=== PATIENT | female | born 1955 | race Caucasian/White ===

== ENCOUNTER 2017-10-02 20:21 | Inpatient (IN) | payer MEDICARE, BC ==
[2017-10-02] MEDS ORDERED: Naloxone 0.4 MG/ML SDV ONE (20:25)
--- NOTE | 2017-10-02 20:46 | EDM.PDOC ---
ED HPI GENERAL MEDICAL PROBLEM - General Chief Complaint: General Stated Complaint: decreased LOC Time Seen by Provider: 10/02/17 20:26 Source of Information: Reports: Other (friend, ) History Limitations: Reports: Altered Mental Status - History of Present Illness INITIAL COMMENTS - FREE TEXT/NARRATIVE: Patient brought by EMS from local home after patient fell over several times/ was acting unusual and exhibited decreased LOC. Patient was visiting friend's home at the time, but recalled that she was acting strangely even before then when they were at [facility]. denies the patient having any problems with drug/ETOH addiction. Staff member present has friend that is neighbor of patient and it has been noted that patient frequently appears to be falling/has poor balance around home and steps. Friend says that first thing patient asked for was a glass of wine when she came through the front door. Friend noticed patient slurring words, had poor balance, and ultimately fell over onto floor. She got up, denied having any injuries or problems, and refused to have friend call patient's when offered. Refused EMS too. Asked for another glass of wine as she spilled the first one. Friend noticed that patient was rambling during visit, and jumped frequently from one subject to another. She then tipped sideways while sitting in a chair. EMS on scene started IV. Blood sugar also checked, D50 not required. By time patient arrived in ER, she was sleeping, aroused by voice. Unable to answer questions however, she would move her lips as though starting to form words, then drift off asleep again. Snoring at times. Would follow some basic commands, such as when asked to squeeze hands. 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: IV/IO - Related Data Allergies Allergy/AdvReac Type Severity Reaction Status Date / Time codeine Allergy Unknown Hyperactivi Verified 10/02/17 20:39 ty Iodinated Contrast- Oral and Allergy Unknown Hives Verified 10/02/17 20:39 IV Dye mirtazapine [From Remeron] Allergy Unknown Airway Verified 10/02/17 20:39 Tightness Penicillins Allergy Unknown Edema Verified 10/02/17 20:39 Home Meds: Home Meds Amitriptyline [Elavil] 75 mg PO DAILY 01/24/15 [History] Diazepam [Valium] 1 tab PO TID PRN 01/24/15 [History] FLUoxetine [PROzac] 40 mg PO DAILY 01/24/15 [History] Gabapentin [Neurontin] 800 mg PO QID 01/24/15 [History] Omeprazole 20 mg PO BEDTIME 01/24/15 [History] atorvaSTATin Calcium [Atorvastatin Calcium] 20 mg PO BEDTIME 01/24/15 [History] buPROPion [Wellbutrin XL] 1 tab PO DAILY 01/24/15 [History] Ibuprofen 800 mg PO Q8HR PRN 08/13/15 [History] diphenhydrAMINE [Benadryl] 50 mg PO Q4H PRN #100 cap 06/10/16 [Rx] Acetaminophen/Diphenhydramine [Tylenol Pm Ex-Strength Caplet] 1 each PO ASDIRECTED PRN 10/02/17 [History] DULoxetine [Cymbalta] 60 mg PO DAILY 10/02/17 [History] Eluxadoline [Viberzi] 100 mg PO BID 10/02/17 [History] Simethicone [Gas-X] 125 mg PO ASDIRECTED PRN 10/02/17 [History] Past Medical History HEENT History: Reports: Allergic Rhinitis, Impaired Vision Cardiovascular History: Reports: Arrhythmia, Blood Clots/VTE/DVT, High Cholesterol Other Cardiovascular History: EpiPen needed with iodide exposure, DVT with secondary PE postoperative with knee surgery as below, hyperlipidemia with recurrent LFTs elevation likely secondary to fatty liver, right bundle branch block Respiratory History: Reports: PE, Pulmonary Fibrosis, Other (See Below) Other Respiratory History: Postoperative PE as above, pulmonary fibrosis by chest x-ray with no current medical therapy Gastrointestinal History: Reports: Colon Polyp, Gastritis, Hemorrhoids, Hiatal Hernia, Pancreatitis, Other (See Below) Other Gastrointestinal History: 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 difficile colitis, hiatal hernia by EGD, pancreatitis on 01/29/05 Genitourinary History: Reports: Other (See Below) Other Genitourinary History: Distant history of hematuria with negative workup for bladder cancer [employer]ENT History: Reports: Other OB/BYN History: Tubal ligation Musculoskeletal History: Reports: Arthritis, Back Pain, Chronic, Neck Pain, Chronic, Osteoarthritis, Osteoporosis, Other (See Below) Other Musculoskeletal History: Scoliosis spinal surgeries as below Neurological History: Reports: Alzheimers Disease, Neuropathy, Peripheral Psychiatric History: Reports: Addiction, Anxiety, Dementia, Depression, Other ( See Below) Other Psychiatric History: Hx of narcotic use 2nd to back pain, eating disorder including anorexia nervosa and bulimia Endocrine/Metabolic History: Reports: Osteoporosis Hematologic History: Reports: Anemia, Blood Transfusion(s), Other (See Below) Other Hematologic History: Postoperative anemia secondary to his multiple surgeries as below with transfusions required Immunologic History: Reports: None Oncologic (Cancer) History: Reports: Colon, Other (See Below) Other Oncologic History: Sigmoid colon cancer as above Dermatologic History: Reports: None - Infectious Disease History Infectious Disease History: Reports: C-Difficile - Past Surgical History GI Surgical History: Reports: Colonoscopy, EGD, Polypectomy, Other (See Below) Female Surgical History: Reports: Tubal Ligation, Other (See Below) Neurological Surgical History: Reports: Discectomy, Laminectomy, Lumbar Spine, Spinal Fusion, Other (See Below) Musculoskeletal Surgical History: Reports: Knee Replacement - Past Imaging History Past Imaging History: Reports: CAT Scan, DEXA Scan, Mammogram, MRI, Ultrasound Social & Family History - Family History Cardiac: Reports: Hypertension, Other (See Below) Other Cardiac Family History: Mother with hypertension - Tobacco Use Smoking Status *Q: Never Smoker Used Tobacco, but Quit: No Second Hand Smoke Exposure: No - Caffeine Use Caffeine Use: Reports: Coffee, Tea - Alcohol Use Days Per Week of Alcohol Use: 7 Number of Drinks Per Day: 2 Total Drinks Per Week: 14 - Recreational Drug Use Recreational Drug Use: No Drug Use in Last 12 Months: No - Living Situation & Occupation Living situation: Reports: , with Family Occupation: Retired ED ROS GENERAL - Review of Systems Review Of Systems: Unable To Obtain (See HPI for family friend and 's account) ED EXAM, GENERAL - Physical Exam Exam: See Below Free Text/Narrative:: Patient slept during most of exam, rousing periodically. Clothing removed. Exam Limited By: Altered Mental Status General Appearance: Lethargic, Obtunded Eye Exam: Bilateral Eye: EOMI, PERRL (3-4mm, minimally reactive to light, equal) Ears: Normal External Exam, Normal Canal (excessive cerumen in canals) Nose: No: Nasal Tenderness, Nasal Deformity, Nasal Swelling, Nasal Drainage Throat/Mouth: Normal Lips, No Airway Compromise, Other (poor dental hygiene, no acute changes noted) Head: Atraumatic, Normocephalic. No: Facial Swelling, Facial Tenderness Neck: Normal Inspection, Supple, Non-Tender, Full Range of Motion Respiratory/Chest: No Respiratory Distress, Lungs Clear, Normal Breath Sounds, No Accessory Muscle Use, Chest Non-Tender Cardiovascular: Normal Peripheral Pulses, Regular Rate, Rhythm, No Edema, No Murmur Peripheral Pulses: 2+: Radial (L), Radial (R), Dorsalis Pedis (L), Dorsalis Pedis (R) GI/Abdominal: Normal Bowel Sounds, Soft, Non-Tender, No Distention (Female) Exam: Deferred Rectal (Female) Exam: Deferred, Other (Cooley placed in ER, no acute abnormalities noted during procedure. ) Back Exam: No: CVA Tenderness (L), CVA Tenderness (R), Muscle Spasm, Paraspinal Tenderness, Vertebral Tenderness Extremities: Non-Tender, No Pedal Edema, Normal Capillary Refill Neurological: Slow to Respond, Unresponsive, Other (Equal tone/strength bilaterally upper and lower limbs) Skin Exam: Warm, Dry, Intact, Normal Color, Other (No wounds/bruising/swelling noted on exam. ) EKG INTERPRETATION EKG Date: 10/02/17 Time: 21:14 Rhythm: NSR Rate (Beats/Min): 97 [place]: Normal P-Wave: Present QRS: Normal ST-T: Normal QT: Prolonged (382ms) Comparison: Change From Previous EKG (Prolonged QT is new) Course - Vital Signs Last Recorded V/S: Last Vital Signs Temp 36.6 C 10/02/17 20:23 Pulse 96 10/02/17 20:23 Resp 16 10/02/17 20:23 BP 101/65 10/02/17 20:23 Pulse Ox 97 10/02/17 20:23 - Orders/Labs/Meds Orders: Active Orders 24 hr Category Date Time Status EKG Documentation Completion [RC] ASDIRECTED Care 10/02/17 21:08 Ordered Cooley Catheter Insertion [Insert Urinary Catheter] [OM. Care 10/02/17 20:30 Ordered PC] Q24H Urinary Catheter Assessment [RC] ASDIRECTED Care 10/02/17 20:30 Ordered Head wo Cont [CT] Stat Exams 10/02/17 20:28 Ordered Labs: Laboratory Tests 10/02/17 10/02/17 10/02/17 Range/Units 20:34 20:34 20:34 WBC 4.4 (4.0-10.2) K/uL RBC 3.26 L (3.77-5.09) M/uL Hgb 10.1 L (11.7-15.5) g/dL Hct 31.2 L (34.0-46.0) % MCV 95.7 (84.0-98.0) fL MCH 31.0 (28.2-33.3) pg MCHC 32.4 (31.7-36.0) g/dL RDW 12.8 (11.2-14.1) % Plt Count 243 (150-350) K/uL Neut % (Auto) 41.9 L (45.0-80.0) % Lymph % (Auto) 47.4 (10.0-50.0) % [place] % (Auto) 7.3 (2.0-14.0) % Eos % (Auto) 3.2 (0.0-5.0) % Baso % (Auto) 0.2 (0.0-2.0) % Neut # (Auto) 1.84 (1.40-7.00) K/uL Lymph # (Auto) 2.08 (0.50-3.50) K/uL [place] # (Auto) 0.32 (0.00-1.00) K/uL Eos # (Auto) 0.14 (0.00-0.50) K/uL Baso # (Auto) 0.01 (0.00-0.20) K/uL Sodium 140 (136-145) mmol/L Potassium 3.6 (3.5-5.1) mmol/L Chloride 103 (98-107) mmol/L Carbon Dioxide 25.4 (21.0-32.0) mmol/L BUN 16 (7-18) mg/dL Creatinine 1.08 (0.51-1.17) mg/dL Est Cr Clr Drug Dosing 45.44 mL/min Estimated GFR (MDRD) 51 mL/min Glucose 80 (74-106) mg/dL Lactic Acid 1.8 (0.4-2.0) mmol/L Calcium 8.5 (8.5-10.1) mg/dL Total Bilirubin 0.1 L (0.2-1.0) mg/dL AST 22 (15-37) U/L ALT 26 (12-78) U/L Alkaline Phosphatase 105 (46-116) IU/L Total Protein 6.3 L (6.4-8.2) g/dL Albumin 3.4 (3.4-5.0) g/dL Amylase (25-115) U/L Specimen Type Urine Color Urine Appearance Urine pH (5.0-9.0) Ur Specific [place] (1.005-1.030) Urine Protein (NEGATIVE) mg/dL Urine Glucose (UA) (NEGATIVE) mg/dL Urine Ketones (NEGATIVE) mg/dL Urine Occult Blood (NEGATIVE) Urine Nitrite (NEGATIVE) Urine Bilirubin (NEGATIVE) Urine Urobilinogen (0.2-1.0) E.U./dL Ur Leukocyte Esterase (NEGATIVE) Urine RBC /HPF Urine WBC /HPF Ur Epithelial Cells /LPF Urine Bacteria (NONE TO FEW) /HPF Hyaline Casts (NEGATIVE) /LPF Urine Opiates Screen (NEGATIVE) Urine Methadone Screen (NEGATIVE) U Acetaminophen Screen (NEGATIVE) Ur Barbiturates Screen (NEGATIVE) Ur Tricyclics Screen (NEGATIVE) Ur Phencyclidine Scrn (NEGATIVE) Ur Amphetamine Screen (NEGATIVE) U Methamphetamines Scrn (NEGATIVE) U Benzodiazepines Scrn (NEGATIVE) U Cocaine Metab Screen (NEGATIVE) U Marijuana (THC) Screen (NEGATIVE) Ethyl Alcohol 0.008 (0.000-0.080) g/dL 10/02/17 10/02/17 10/02/17 Range/Units 20:46 20:48 20:48 WBC (4.0-10.2) K/uL RBC (3.77-5.09) M/uL Hgb (11.7-15.5) g/dL Hct (34.0-46.0) % MCV (84.0-98.0) fL MCH (28.2-33.3) pg MCHC (31.7-36.0) g/dL RDW (11.2-14.1) % Plt Count (150-350) K/uL Neut % (Auto) (45.0-80.0) % Lymph % (Auto) (10.0-50.0) % [place] % (Auto) (2.0-14.0) % Eos % (Auto) (0.0-5.0) % Baso % (Auto) (0.0-2.0) % Neut # (Auto) (1.40-7.00) K/uL Lymph # (Auto) (0.50-3.50) K/uL [place] # (Auto) (0.00-1.00) K/uL Eos # (Auto) (0.00-0.50) K/uL Baso # (Auto) (0.00-0.20) K/uL Sodium (136-145) mmol/L Potassium (3.5-5.1) mmol/L Chloride (98-107) mmol/L Carbon Dioxide (21.0-32.0) mmol/L BUN (7-18) mg/dL Creatinine (0.51-1.17) mg/dL Est Cr Clr Drug Dosing mL/min Estimated GFR (MDRD) mL/min Glucose (74-106) mg/dL Lactic Acid (0.4-2.0) mmol/L Calcium (8.5-10.1) mg/dL Total Bilirubin (0.2-1.0) mg/dL AST (15-37) U/L ALT (12-78) U/L Alkaline Phosphatase (46-116) IU/L Total Protein (6.4-8.2) g/dL Albumin (3.4-5.0) g/dL Amylase 71 (25-115) U/L Specimen Type Urincath Urine Color Yellow Urine Appearance Clear Urine pH 6.0 (5.0-9.0) Ur Specific [place] 1.010 (1.005-1.030) Urine Protein Negative (NEGATIVE) mg/dL Urine Glucose (UA) Negative (NEGATIVE) mg/dL Urine Ketones Negative (NEGATIVE) mg/dL Urine Occult Blood Trace-lysed H (NEGATIVE) Urine Nitrite Negative (NEGATIVE) Urine Bilirubin Negative (NEGATIVE) Urine Urobilinogen 0.2 (0.2-1.0) E.U./dL Ur Leukocyte Esterase Negative (NEGATIVE) Urine RBC 5-10 H /HPF Urine WBC Not seen /HPF Ur Epithelial Cells Rare /LPF Urine Bacteria Few (NONE TO FEW) /HPF Hyaline Casts Occasional H (NEGATIVE) /LPF Urine Opiates Screen Negative (NEGATIVE) Urine Methadone Screen Negative (NEGATIVE) U Acetaminophen Screen Negative (NEGATIVE) Ur Barbiturates Screen Negative (NEGATIVE) Ur Tricyclics Screen Positive H (NEGATIVE) Ur Phencyclidine Scrn Negative (NEGATIVE) Ur Amphetamine Screen Negative (NEGATIVE) U Methamphetamines Scrn Negative (NEGATIVE) U Benzodiazepines Scrn Positive H (NEGATIVE) U Cocaine Metab Screen Negative (NEGATIVE) U Marijuana (THC) Screen Negative (NEGATIVE) Ethyl Alcohol (0.000-0.080) g/dL Meds: Medications Discontinued Medications Generic Name Dose Route Start Last Admin Trade Name Dianna PRN Reason Stop Dose Admin Flumazenil 0.5 mg 10/02/17 21:04 10/02/17 21:07 Romazicon IVPUSH 10/02/17 21:05 0.5 mg ONETIME ONE Administration Naloxone HCl Confirm 10/02/17 20:25 10/02/17 20:26 Narcan Administered 10/02/17 20:26 0.4 mg Dose Administration 0.4 mg .ROUTE .STK-MED ONE - Radiology Interpretation CT Results Date: 10/02/17 CT Results Time: 21:00 (Head CT negative for acute changes. ) - Re-Assessments/Exams Free Text/Narrative Re-Assessment/Exam: Cooley placed. UA and blood sent to lab. CBC showed Hgb 10.1 Review of patient's chart shows that this is in her usual range of 10-11 over the past years. WBC and platelets normal. Chemistry, Amylase, Lipase normal. UA normal. ETOH showed low level present. Drug screen + for Benzo/Tricyclics which have been prescribed for patient. Vital signs stable, however BP remained on low side of normal overall. Narcan given shortly after arrival with no observed change. Once CT results were available and negative, and drug screen results read, Romazicon given. Shortly thereafter patient's eyes flew open and she looked around the room and wondered what was going on. When asked where she thought she was, she responded "[facility]". She thought it was October, and said the year correctly at 2018. Speech clear. When told we had treated her with a medication that reversed overdoses of Benzodiazepines, patient immediately said that she did not take any extra medications and had not misused any of her prescriptions. She denied trying to harm self or take too much on purpose. Plan at this time is to admit observation. Suspect Valium overdose. Patient is on multiple medications and may have multiple medications/interactions playing a factor in tonight's issues. Again, per a neighbor, patient is frequently seen around her house stumbling/falling, thus there is concern that this may be a chronic problem. Will have PT and OT evaluate patient on Wednesday to see if they have any concerns. Anticipate patient staying 36-48 hours while being observed for further changes in LOC while Valium level stabilizes in her system. Patient care will be taken over by [facility] [place] Wednesday and at that time they can review her medications and make adjustments as needed prior to anticipated discharge. Departure - Departure Time of Disposition: 21:44 Disposition: Refer to Observation Condition: Good Clinical Impression: Valium dependence Fall Qualifiers: Encounter type: initial encounter Qualified Code(s): W19.XXXA - Unspecified fall, initial encounter Altered mental state Qualifiers: Altered mental status type: stupor Qualified Code(s): R40.1 - Stupor Valium overdose Qualifiers: Encounter type: initial encounter Injury intent: accidental or unintentional Qualified Code(s): T42.4X1A - Poisoning by benzodiazepines, accidental ( unintentional), initial encounter - Discharge Information Referrals: Ronda Wyatt PA [ED Midlevel Provider] - Forms: ED Department Discharge - Problem List & Annotations (1) Valium overdose SNOMED Code(s): 215758132 Code(s): T42.4X1A - POISONING BY BENZODIAZEPINES, ACCIDENTAL, INIT Status: Acute Priority: High Current Visit: Yes Onset Date: 10/02/17 Annotation/ Comment:: Patient denies intentional overdosing. Immediate improvement in LOC after given IV Romazicon to reverse Benzodiazepine action. Qualifiers: Encounter type: initial encounter Injury intent: accidental or unintentional Qualified Code(s): T42.4X1A - Poisoning by benzodiazepines, accidental (unintentional), initial encounter (2) Altered mental state SNOMED Code(s): 451048896 Code(s): R41.82 - ALTERED MENTAL STATUS, UNSPECIFIED Status: Acute Priority: High Current Visit: Yes Onset Date: ~10/02/17 Annotation/Comment :: Suspect due to Valium OD. Currently improved. Negative head CT. Qualifiers: Altered mental status type: stupor Qualified Code(s): R40.1 - Stupor (3) Fall SNOMED Code(s): 5062326 Code(s): W19.XXXA - UNSPECIFIED FALL, INITIAL ENCOUNTER Status: Acute Priority: Low Current Visit: Yes Onset Date: 10/02/17 Annotation/Comment: : Does not appear to have any injuries acutely sustained from tonight's falls. Qualifiers: Encounter type: initial encounter Qualified Code(s): W19.XXXA - Unspecified fall, initial encounter (4) Valium dependence SNOMED Code(s): 161389762 Code(s): F13.20 - SEDATIVE, HYPNOTIC OR ANXIOLYTIC DEPENDENCE, UNCOMPLICATED Status: Acute Priority: High Current Visit: Yes Annotation/Comment:: Patient has been taking Valium three times a day for years and by nature of the medication will have developed physical dependence from chronic use. (5) Anxiety and depression SNOMED Code(s): 839740129 Code(s): F41.8 - OTHER SPECIFIED ANXIETY DISORDERS Status: Chronic Priority: Medium Current Visit: Yes (6) Osteoarthritis SNOMED Code(s): 969975551 Code(s): M19.90 - UNSPECIFIED OSTEOARTHRITIS, UNSPECIFIED SITE Status: Chronic Priority: Medium Current Visit: No Annotation/Comment:: Stable by patient history Qualifiers: Osteoarthritis location: multiple joints Osteoarthritis type: primary Qualified Code(s): M15.0 - Primary generalized (osteo)arthritis (7) GERD (gastroesophageal reflux disease) SNOMED Code(s): 622766011 Code(s): K21.9 - GASTRO-ESOPHAGEAL REFLUX DISEASE WITHOUT ESOPHAGITIS Status: Chronic Priority: Low Current Visit: Yes Qualifiers: Esophagitis presence: esophagitis presence not specified Qualified Code(s) : K21.9 - Gastro-esophageal reflux disease without esophagitis - Problem List Review Problem List Initiated/Reviewed/Updated: Yes - My Orders Last 24 Hours: My Active Orders 10/02/17 20:28 Head wo Cont [CT] Stat 10/02/17 20:30 Cooley Catheter Insertion [Insert Urinary Catheter] [OM.PC] Q24H Urinary Catheter Assessment [RC] ASDIRECTED 10/02/17 21:08 EKG Documentation Completion [RC] ASDIRECTED - Assessment/Plan Admission H&P: Please use this note as an admission H&P Last 24 Hours: My Active Orders 10/02/17 20:28 Head wo Cont [CT] Stat 10/02/17 20:30 Cooley Catheter Insertion [Insert Urinary Catheter] [OM.PC] Q24H Urinary Catheter Assessment [RC] ASDIRECTED 10/02/17 21:08 EKG Documentation Completion [RC] ASDIRECTED Assessment:: Patient on multiple medications and chronic Valium use with acute altered LOC/ stupor, reversed by Romazicon. Suspect misuse/overdose of Valium. May have contributing effects from ETOH as well as her other medications. Plan: Admit observation, telemetry. Continue patient on usual doses of prescribed medication. IV fluid. PT and OT eval Wednesday given history of patient observed with poor balance/falls at home. May need medication adjustments prior to discharge. OK for general supervision on medical floor.
[2017-10-02] MEDS ORDERED: Flumazenil 0.1 MG/ML 5 ML MDV IVPUSH ONE (21:04)
[2017-10-02] MEDS ORDERED: diphenhydrAMINE 25 MG Cap PO PRN (22:07)
[2017-10-02] MEDS ORDERED: Simethicone 125 MG Tab.Chew PO PRN (22:07)
[2017-10-02] MEDS ORDERED: Ibuprofen 400 MG Tab PO PRN (22:07)
[2017-10-02] MEDS ORDERED: Sodium Chloride 0.9% 500 ML IV SCH (22:15)
[2017-10-03] MEDS: FLUoxetine 20 MG Cap PO SCH (07:36)
[2017-10-03] MEDS: buPROPion 150 MG Tab.ER PO SCH (07:36)
[2017-10-03] MEDS ORDERED: DULoxetine 30 MG Cap PO SCH ×2 (08:00→16:00)
[2017-10-03] MEDS ORDERED: Amitriptyline 25 MG Tab PO SCH (08:00)
[2017-10-03] MEDS: Gabapentin 400 MG Cap PO SCH ×4 (09:04→19:49)
[2017-10-03] MEDS: Diazepam 5 MG Tab PO PRN ×3 (09:32→22:54)
--- NOTE | 2017-10-03 12:05 | PCM.PN ---
- General Info Date of Service: 10/03/17 Admission Dx/Problem (Free Text): Patient admitted observation after suspected Valium overdose. 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 Subjective Update: Patient says she feels like normal self. Repeatedly is saying to staff that she is not a drug abuser. Frequently asking what explanation is for last night's visit to ER. No active new complaints at this time. - Review of Systems General: Reports: No Symptoms (no acute changes from baseline) HEENT: Reports: No Symptoms Pulmonary: Reports: No Symptoms Cardiovascular: Reports: No Symptoms Gastrointestinal: Reports: No Symptoms Genitourinary: Reports: No Symptoms Musculoskeletal: Reports: No Symptoms (no acute changes from baseline) Skin: Reports: No Symptoms Neurological: Reports: No Symptoms (no acute changes from baseline) Psychiatric: Reports: No Symptoms. Denies: Confusion, Agitation, Cravings, Hallucinations, Suicidal Ideation, Homicidal Ideation - Patient Data Vitals - Most Recent: Last Vital Signs Temp 36.8 C 10/03/17 10:25 Pulse 107 H 10/03/17 10:25 Resp 18 10/03/17 10:25 BP 134/82 10/03/17 10:25 Pulse Ox 97 10/03/17 07:03 Weight - Most Recent: 68.266 kg I&O - Last 24 Hours: Intake & Output 10/02/17 10/03/17 10/03/17 22:59 06:59 14:59 Intake Total 600 2120 Output Total 700 900 Balance -700 -300 2120 Med Orders - Current: Current Medications Acetaminophen (Tylenol Extra Strength) 500 mg PO BEDTIME PRN PRN Reason: Sleep Amitriptyline HCl (Elavil) 75 mg PO BEDTIME NIDHI Atorvastatin Calcium (Lipitor) 20 mg PO BEDTIME NIDHI Bupropion HCl (Wellbutrin Xl) 300 mg PO DAILY NIDHI Last Admin: 10/03/17 07:36 Dose: 300 mg Diazepam (Valium.) 5 mg PO TID PRN PRN Reason: Anxiety Last Admin: 10/03/17 09:32 Dose: 5 mg Diphenhydramine HCl (Benadryl) 50 mg PO Q4H PRN PRN Reason: Allergies Diphenhydramine HCl (Benadryl) 25 mg PO BEDTIME PRN PRN Reason: sleep Duloxetine HCl (Cymbalta) 60 mg PO DAILY@1600 NIDHI Fluoxetine HCl (Prozac) 40 mg PO DAILY [facility] Last Admin: 10/03/17 07:36 Dose: 40 mg Gabapentin (Neurontin) 800 mg PO QID [facility] Last Admin: 10/03/17 09:04 Dose: 800 mg Sodium Chloride (Normal Saline) 500 mls @ 100 mls/hr IV ASDIRECTED [facility] Last Admin: 10/02/17 22:27 Dose: 100 mls/hr Ibuprofen (Motrin) 800 mg PO Q8HR PRN PRN Reason: Pain Last Admin: 10/03/17 07:41 Dose: 800 mg Omeprazole (Omeprazole) 20 mg PO BEDTIME [facility] Simethicone (Simethicone) 125 mg PO ASDIRECTED PRN PRN Reason: Indigestion Discontinued Medications Amitriptyline HCl (Elavil) 75 mg PO DAILY [facility] Last Admin: 10/03/17 09:05 Dose: Not Given Duloxetine HCl (Cymbalta) 60 mg PO DAILY [facility] Last Admin: 10/03/17 09:05 Dose: Not Given Flumazenil (Romazicon) 0.5 mg IVPUSH ONETIME ONE Stop: 10/02/17 21:05 Last Admin: 10/02/17 21:07 Dose: 0.5 mg Naloxone HCl (Narcan) Confirm Administered Dose 0.4 mg .ROUTE .STK-MED ONE Stop: 10/02/17 20:26 Last Admin: 10/02/17 20:26 Dose: 0.4 mg Non-Formulary Medication (Acetaminophen/Diphenhydramine [Tylenol Pm Ex-Strength Caplet]) 1 each PO ASDIRECTED PRN PRN Reason: Sleep - Exam General: Alert, Oriented, Cooperative, No Acute Distress HEENT: Pupils Equal, Pupils Reactive, EOMI, Mucous Membr. Moist/[place] Neck: Supple Lungs: Clear to Auscultation, Normal Respiratory Effort Cardiovascular: Regular Rhythm, No Murmurs, Tachycardia (HR 105) GI/Abdominal Exam: Normal Bowel Sounds, Soft, Non-Tender, No Distention, No Mass (Female) Exam: Deferred Back Exam: No: CVA Tenderness (L), CVA Tenderness (R) Extremities: Normal Inspection, Normal Range of Motion, Non-Tender, No Pedal Edema, Normal Capillary Refill Peripheral Pulses: 2+: Radial (L), Radial (R), Dorsalis Pedis (L), Dorsalis Pedis (R) Skin: Warm, Dry, Intact Neurological: No New Focal Deficit Psy/Mental Status: Alert, Anxious - Problem List & Annotations (1) Valium overdose SNOMED Code(s): 268187024 Code(s): T42.4X1A - POISONING BY BENZODIAZEPINES, ACCIDENTAL, INIT Status: Acute Priority: High Current Visit: Yes Onset Date: 10/02/17 Qualifiers: Encounter type: initial encounter Injury intent: accidental or unintentional Qualified Code(s): T42.4X1A - Poisoning by benzodiazepines, accidental (unintentional), initial encounter Annotation/Comment:: Patient denies intentional overdosing. Immediate improvement in LOC after given IV Romazicon to reverse Benzodiazepine action. Very adamant that she only takes a small amount of her Valium daily. Repeatedly says this to myself and staff. Denies any feelings of dependency and withdrawal. (2) Altered mental state SNOMED Code(s): 691966693 Code(s): R41.82 - ALTERED MENTAL STATUS, UNSPECIFIED Status: Acute Priority: High Current Visit: Yes Onset Date: ~10/02/17 Qualifiers: Altered mental status type: stupor Qualified Code(s): R40.1 - Stupor Annotation/Comment:: Suspect due to Valium OD. Currently improved. Negative head CT. (3) Fall SNOMED Code(s): 8051213 Code(s): W19.XXXA - UNSPECIFIED FALL, INITIAL ENCOUNTER Status: Acute Priority: Low Current Visit: Yes Onset Date: 10/02/17 Qualifiers: Encounter type: initial encounter Qualified Code(s): W19.XXXA - Unspecified fall, initial encounter Annotation/Comment:: Does not appear to have any injuries acutely sustained from tonight's falls. (4) Valium dependence SNOMED Code(s): 234250900 Code(s): F13.20 - SEDATIVE, HYPNOTIC OR ANXIOLYTIC DEPENDENCE, UNCOMPLICATED Status: Acute Priority: High Current Visit: Yes Annotation/Comment:: Patient has been taking Valium recently and previously was using Xanax. Currently prescribed VAlium TID PRN. By nature of the medication will have developed physical dependence from chronic use if is taking the medication multiple times daily. Suspect dependence may be factor. (5) Anxiety and depression SNOMED Code(s): 873691821 Code(s): F41.8 - OTHER SPECIFIED ANXIETY DISORDERS Status: Chronic Priority: Medium Current Visit: Yes (6) Osteoarthritis SNOMED Code(s): 230007166 Code(s): M19.90 - UNSPECIFIED OSTEOARTHRITIS, UNSPECIFIED SITE Status: Chronic Priority: Medium Current Visit: No Qualifiers: Osteoarthritis location: multiple joints Osteoarthritis type: primary Qualified Code(s): M15.0 - Primary generalized (osteo)arthritis Annotation/Comment:: Stable by patient history (7) GERD (gastroesophageal reflux disease) SNOMED Code(s): 386511214 Code(s): K21.9 - GASTRO-ESOPHAGEAL REFLUX DISEASE WITHOUT ESOPHAGITIS Status: Chronic Priority: Low Current Visit: Yes Qualifiers: Esophagitis presence: esophagitis presence not specified Qualified Code(s) : K21.9 - Gastro-esophageal reflux disease without esophagitis - Problem List Review Problem List Initiated/Reviewed/Updated: Yes - My Orders Last 24 Hours: My Active Orders 10/02/17 22:02 Patient Status [ADT] Routine Ambulate [RC] ASDIRECTED May Shower [RC] ASDIRECTED Oxygen Therapy [RC] PRN Up With Assistance [RC] ASDIRECTED VTE/DVT Education [RC] PER UNIT ROUTINE Vital Signs [RC] Q4HR OT Evaluation and Treatment [CONS] Routine PT Evaluation and Treatment [CONS] Routine Resuscitation Status Routine 10/02/17 22:04 Cardiac Monitoring [RC] Q2HR Intake and Output [RC] 06,14,22 10/02/17 22:05 Pulse Oximetry [RC] CONTINUOUS Antiembolic Hose [OM.PC] Per Unit Routine 10/02/17 22:06 Antiembolic Devices [RC] 10/02/17 22:07 Ibuprofen [Motrin] 800 mg PO Q8HR PRN Simethicone 125 mg PO ASDIRECTED PRN diphenhydrAMINE [Benadryl] 50 mg PO Q4H PRN 10/02/17 22:09 Diazepam [Valium] 5 mg PO TID PRN 10/02/17 22:11 Communication Order [RC] ROUTINE 10/02/17 22:15 Sodium Chloride 0.9% [Normal Saline] 500 ml IV ASDIRECTED 01/21/18 08:00 FLUoxetine [PROzac] 40 mg PO DAILY Gabapentin [Neurontin] 800 mg PO QID buPROPion [Wellbutrin XL] 300 mg PO DAILY 10/03/17 09:06 Acetaminophen [Tylenol Extra Strength] 500 mg PO BEDTIME PRN 10/03/17 09:12 diphenhydrAMINE [Benadryl] 25 mg PO BEDTIME PRN 10/03/17 16:00 DULoxetine [Cymbalta] 60 mg PO DAILY@1600 10/03/17 20:00 Amitriptyline [Elavil] 75 mg PO BEDTIME Omeprazole 20 mg PO BEDTIME atorvaSTATin [Lipitor] 20 mg PO BEDTIME 10/03/17 Breakfast Regular Diet [DIET] - Assessment Assessment:: Valium overdose, 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 Patient denies overuse/dependency. Noted this morning that patient's blood pressure and pulse started to increase, as well as mild temp increase observed. Given 5mg of PO valium. Heart rate improved. This would support possible dependence on Valium and observed changes associated with withdrawal. 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 PT and OT consult pending tomorrow given patient's observed shakiness and poor balance. Patient's primary clinic will be taking over care tomorrow. Patient will likely need adjustment in current medications and close follow up .
[2017-10-03] MEDS: Loperamide 2 MG Tab PO PRN ×2 (15:40→19:49)
[2017-10-03] MEDS: Amitriptyline 25 MG Tab PO SCH (19:49)
[2017-10-03] MEDS: atorvaSTATin 10 MG Tab PO SCH (19:49)
[2017-10-03] MEDS: Acetaminophen 500 MG Tab PO PRN (19:50)
[2017-10-03] MEDS: diphenhydrAMINE 25 MG Cap PO PRN (19:53)
[2017-10-03] MEDS ORDERED: Omeprazole 20 MG Cap.CR PO SCH (20:00)
[2017-10-04] MEDS: buPROPion 150 MG Tab.ER PO SCH (08:23)
[2017-10-04] MEDS: FLUoxetine 20 MG Cap PO SCH (08:23)
[2017-10-04] MEDS: Gabapentin 400 MG Cap PO SCH ×3 (08:24→20:55)
[2017-10-04] MEDS: Loperamide 2 MG Tab PO PRN ×2 (11:17→20:55)
[2017-10-04] MEDS: Diazepam 5 MG Tab PO PRN ×2 (11:17→18:06)
[2017-10-04 13:15] LABS: CHLORIDE,CL 104 mmol/L (98-107); SODIUM,NA 140 mmol/L (136-145)
[2017-10-04] MEDS ORDERED: Ketorolac 15 MG/ML SDV IVPUSH SCH (17:45)
--- NOTE | 2017-10-04 17:49 | PCM.PN ---
- General Info Date of Service: 10/04/17 Admission Dx/Problem (Free Text): Patient admitted observation after suspected Valium overdose. 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 Subjective Update: Patient says she feels like normal self. Repeatedly is saying to staff that she is not a drug abuser. Frequently asking what explanation is for last night's visit to ER. No active new complaints at this time. Functional Status: Reports: Other (doesn't know what happened, still pain) - Review of Systems General: Reports: Other (shakes) HEENT: Reports: No Symptoms Pulmonary: Reports: No Symptoms Cardiovascular: Reports: No Symptoms Gastrointestinal: Reports: No Symptoms Genitourinary: Reports: No Symptoms Musculoskeletal: Reports: Back Pain, Leg Pain Skin: Reports: No Symptoms Neurological: Reports: Syncope, Tremors, Weakness Psychiatric: Reports: Anxiety - Patient Data Vitals - Most Recent: Last Vital Signs Temp 97.5 F 10/04/17 07:47 Pulse 96 10/04/17 07:47 Resp 17 10/04/17 07:47 BP 145/89 H 10/04/17 07:47 Pulse Ox 91 L 10/04/17 07:47 Weight - Most Recent: 150 lb 8.012 oz I&O - Last 24 Hours: Intake & Output 10/04/17 10/04/17 10/04/17 06:59 14:59 22:59 Intake Total 500 900 Output Total 400 1300 Balance 100 -400 Lab Results Last 24 Hours: Laboratory Results - last 24 hr 10/04/17 10/04/17 Range/Units 12:51 12:51 WBC 5.7 (4.0-10.2) K/uL RBC 3.57 L (3.77-5.09) M/uL Hgb 11.1 L (11.7-15.5) g/dL Hct 34.0 (34.0-46.0) % MCV 95.2 (84.0-98.0) fL MCH 31.1 (28.2-33.3) pg MCHC 32.6 (31.7-36.0) g/dL RDW 13.3 (11.2-14.1) % Plt Count 235 (150-350) K/uL Neut % (Auto) 66.4 (45.0-80.0) % Lymph % (Auto) 23.4 (10.0-50.0) % [place] % (Auto) 7.6 (2.0-14.0) % Eos % (Auto) 2.6 (0.0-5.0) % Baso % (Auto) 0.0 (0.0-2.0) % Neut # (Auto) 3.78 (1.40-7.00) K/uL Lymph # (Auto) 1.33 (0.50-3.50) K/uL [place] # (Auto) 0.43 (0.00-1.00) K/uL Eos # (Auto) 0.15 (0.00-0.50) K/uL Baso # (Auto) 0.00 (0.00-0.20) K/uL Sodium 140 (136-145) mmol/L Potassium 4.2 (3.5-5.1) mmol/L Chloride 104 (98-107) mmol/L Carbon Dioxide 30.0 (21.0-32.0) mmol/L BUN 11 (7-18) mg/dL Creatinine 0.87 (0.51-1.17) mg/dL Est Cr Clr Drug Dosing 61.49 mL/min Estimated GFR (MDRD) > 60 mL/min Glucose 101 (74-106) mg/dL Calcium 9.2 (8.5-10.1) mg/dL Magnesium 1.8 (1.8-2.4) mg/dL Total Bilirubin 0.2 (0.2-1.0) mg/dL AST 29 (15-37) U/L ALT 29 (12-78) U/L Alkaline Phosphatase 86 (46-116) IU/L Total Protein 6.7 (6.4-8.2) g/dL Albumin 3.4 (3.4-5.0) g/dL Med Orders - Current: Current Medications Acetaminophen (Tylenol Extra Strength) 500 mg PO BEDTIME PRN PRN Reason: Sleep Last Admin: 10/03/17 19:50 Dose: 500 mg Amitriptyline HCl (Elavil) 75 mg PO BEDTIME NIDHI Last Admin: 10/03/17 19:49 Dose: 75 mg Atorvastatin Calcium (Lipitor) 20 mg PO BEDTIME NIDHI Last Admin: 10/03/17 19:49 Dose: 20 mg Diazepam (Valium.) 5 mg PO TID PRN PRN Reason: Anxiety Last Admin: 10/04/17 11:17 Dose: 5 mg Diphenhydramine HCl (Benadryl) 50 mg PO Q4H PRN PRN Reason: Allergies Diphenhydramine HCl (Benadryl) 25 mg PO BEDTIME PRN PRN Reason: sleep Last Admin: 10/03/17 19:53 Dose: 25 mg Fluoxetine HCl (Prozac) 40 mg PO DAILY [facility] Last Admin: 10/04/17 08:23 Dose: 40 mg Gabapentin (Neurontin) 800 mg PO Q12HR [facility] Sodium Chloride (Normal Saline) 500 mls @ 100 mls/hr IV ASDIRECTED [facility] Last Admin: 10/02/17 22:27 Dose: 100 mls/hr Ketorolac Tromethamine (Toradol) 15 mg IVPUSH Q6HR [facility] Stop: 10/09/17 17:34 Loperamide HCl (Imodium Ad) 2 mg PO ASDIRECTED PRN PRN Reason: Diarrhea Last Admin: 10/04/17 11:17 Dose: 4 mg Pantoprazole Sodium (Protonix Iv) 40 mg IVPUSH BEDTIME [facility] Simethicone (Simethicone) 125 mg PO ASDIRECTED PRN PRN Reason: Indigestion Discontinued Medications Amitriptyline HCl (Elavil) 75 mg PO DAILY [facility] Last Admin: 10/03/17 09:05 Dose: Not Given Bupropion HCl (Wellbutrin Xl) 300 mg PO DAILY [facility] Last Admin: 10/04/17 08:23 Dose: 300 mg Duloxetine HCl (Cymbalta) 60 mg PO DAILY [facility] Last Admin: 10/03/17 09:05 Dose: Not Given Duloxetine HCl (Cymbalta) 60 mg PO DAILY@1600 [facility] Last Admin: 10/03/17 17:12 Dose: 60 mg Flumazenil (Romazicon) 0.5 mg IVPUSH ONETIME ONE Stop: 10/02/17 21:05 Last Admin: 10/02/17 21:07 Dose: 0.5 mg Gabapentin (Neurontin) 800 mg PO QID [facility] Last Admin: 10/04/17 11:52 Dose: 800 mg Gabapentin (Neurontin) 400 mg PO Q12HR [facility] Ibuprofen (Motrin) 800 mg PO Q8HR PRN PRN Reason: Pain Last Admin: 10/03/17 07:41 Dose: 800 mg Ketorolac Tromethamine (Toradol) 15 mg IVPUSH Q6H [facility] Stop: 10/09/17 17:34 Naloxone HCl (Narcan) Confirm Administered Dose 0.4 mg .ROUTE .STK-MED ONE Stop: 10/02/17 20:26 Last Admin: 10/02/17 20:26 Dose: 0.4 mg Non-Formulary Medication (Acetaminophen/Diphenhydramine [Tylenol Pm Ex-Strength Caplet]) 1 each PO ASDIRECTED PRN PRN Reason: Sleep Omeprazole (Omeprazole) 20 mg PO BEDTIME NIDHI Last Admin: 10/03/17 19:49 Dose: 20 mg - Problem List & Annotations (1) Altered mental state SNOMED Code(s): 567696011 Code(s): R41.82 - ALTERED MENTAL STATUS, UNSPECIFIED Status: Acute Priority: High Current Visit: Yes Onset Date: ~10/02/17 Qualifiers: Altered mental status type: stupor Qualified Code(s): R40.1 - Stupor Annotation/Comment:: Suspect due to Valium OD. Currently improved. Negative head CT. (2) Fall SNOMED Code(s): 9997580 Code(s): W19.XXXA - UNSPECIFIED FALL, INITIAL ENCOUNTER Status: Acute Priority: Low Current Visit: Yes Onset Date: 10/02/17 Qualifiers: Encounter type: initial encounter Qualified Code(s): W19.XXXA - Unspecified fall, initial encounter Annotation/Comment:: Does not appear to have any injuries acutely sustained from tonight's falls. (3) Valium dependence SNOMED Code(s): 622216278 Code(s): F13.20 - SEDATIVE, HYPNOTIC OR ANXIOLYTIC DEPENDENCE, UNCOMPLICATED Status: Acute Priority: High Current Visit: Yes Annotation/Comment:: Patient has been taking Valium recently and previously was using Xanax. Currently prescribed VAlium TID PRN. By nature of the medication will have developed physical dependence from chronic use if is taking the medication multiple times daily. Suspect dependence may be factor. (4) Valium overdose SNOMED Code(s): 900898011 Code(s): T42.4X1A - POISONING BY BENZODIAZEPINES, ACCIDENTAL, INIT Status: Acute Priority: High Current Visit: Yes Onset Date: 10/02/17 Qualifiers: Encounter type: initial encounter Injury intent: accidental or unintentional Qualified Code(s): T42.4X1A - Poisoning by benzodiazepines, accidental (unintentional), initial encounter Annotation/Comment:: Patient denies intentional overdosing. Immediate improvement in LOC after given IV Romazicon to reverse Benzodiazepine action. Very adamant that she only takes a small amount of her Valium daily. Repeatedly says this to myself and staff. Denies any feelings of dependency and withdrawal. (5) Anxiety and depression SNOMED Code(s): 867737155 Code(s): F41.8 - OTHER SPECIFIED ANXIETY DISORDERS Status: Chronic Priority: Medium Current Visit: Yes (6) GERD (gastroesophageal reflux disease) SNOMED Code(s): 542936055 Code(s): K21.9 - GASTRO-ESOPHAGEAL REFLUX DISEASE WITHOUT ESOPHAGITIS Status: Chronic Priority: Low Current Visit: Yes Qualifiers: Esophagitis presence: esophagitis presence not specified Qualified Code(s) : K21.9 - Gastro-esophageal reflux disease without esophagitis (7) Abnormal liver function SNOMED Code(s): 86275748 Code(s): K76.89 - OTHER SPECIFIED DISEASES OF LIVER Status: Acute Current Visit: No (8) Anxiety SNOMED Code(s): 06151930 Code(s): F41.9 - ANXIETY DISORDER, UNSPECIFIED Status: Acute Current Visit: No (9) Anxiety disorder SNOMED Code(s): 577667747 Code(s): F41.9 - ANXIETY DISORDER, UNSPECIFIED Status: Acute Current Visit: No (10) Confusion SNOMED Code(s): 654457185 Code(s): R41.0 - DISORIENTATION, UNSPECIFIED Status: Acute Current Visit : No (11) Fall at home SNOMED Code(s): 69352194 Code(s): W19.XXXA - UNSPECIFIED FALL, INITIAL ENCOUNTER; Y92.099 - UNSP PLACE IN [facility] NON-INSTITUTIONAL RESIDENCE PLACE Status: Acute Current Visit: No (12) History of bulimia nervosa SNOMED Code(s): 091350317794193 Code(s): Z86.59 - PERSONAL HISTORY OF OTHER MENTAL AND BEHAVIORAL DISORDERS Status: Acute Current Visit: No (13) Liver function study, abnormal SNOMED Code(s): 043331062 Code(s): R94.5 - ABNORMAL RESULTS OF LIVER FUNCTION STUDIES Status: Acute Current Visit: No (14) Tachycardia SNOMED Code(s): 9469872 Code(s): R00.0 - TACHYCARDIA, UNSPECIFIED Status: Acute Current Visit: No (15) Hyperlipidemia SNOMED Code(s): 95349695 Code(s): E78.5 - HYPERLIPIDEMIA, UNSPECIFIED Status: Chronic Priority: Medium Current Visit: No Qualifiers: Hyperlipidemia type: unspecified Qualified Code(s): E78.5 - Hyperlipidemia , unspecified Annotation/Comment:: Currently under medical therapy. Note history of LFTs elevation (16) Mixed anxiety depressive disorder SNOMED Code(s): 100104067 Code(s): F41.8 - OTHER SPECIFIED ANXIETY DISORDERS Status: Chronic Priority: Medium Current Visit: No Annotation/Comment:: Moderate control of her anxiety. Continue to observe closely by her regular providers (17) Osteoarthritis SNOMED Code(s): 295861461 Code(s): M19.90 - UNSPECIFIED OSTEOARTHRITIS, UNSPECIFIED SITE Status: Chronic Priority: Medium Current Visit: No Qualifiers: Osteoarthritis location: multiple joints Osteoarthritis type: primary Qualified Code(s): M15.0 - Primary generalized (osteo)arthritis Annotation/Comment:: Stable by patient history (18) Peptic reflux disease SNOMED Code(s): 63080131 Code(s): K21.9 - GASTRO-ESOPHAGEAL REFLUX DISEASE WITHOUT ESOPHAGITIS Status: Chronic Priority: Medium Current Visit: No Annotation/Comment:: Stable by patient history - Problem List Review Problem List Initiated/Reviewed/Updated: Yes - My Orders Last 24 Hours: My Active Orders 10/04/17 12:51 GABAPENTIN [REF] Routine 10/04/17 17:29 Patient Status [ADT] Routine 10/04/17 18:00 Ketorolac [Toradol] 15 mg IVPUSH Q6HR 10/04/17 20:00 Gabapentin [Neurontin] 800 mg PO Q12HR Pantoprazole [ProTONIX IV] 40 mg IVPUSH BEDTIME 10/05/17 05:11 Carotid Comp [US] Routine EEG with Awake and Drowsy [EN] Routine 10/11/17 08:00 Brain w wo Cont [MR] Routine MRA Head Without Contrast [Ang Head wo Cont] [MR] Routine - Assessment Assessment:: Valium overdose, 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 Patient denies overuse/dependency. Noted this morning that patient's blood pressure and pulse started to increase, as well as mild temp increase observed. Given 5mg of PO valium. Heart rate improved. This would support possible dependence on Valium and observed changes associated with withdrawal. 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 PT and OT consult pending tomorrow given patient's observed shakiness and poor balance. Patient's primary clinic will be taking over care tomorrow. Patient will likely need adjustment in current medications and close follow up . 10/04/17 Denny Sawyer MD Change to inpatient for scheduled IV toradol and IV protonix.
[2017-10-04] MEDS: Ketorolac 15 MG/ML SDV IVPUSH SCH ×2 (18:07→21:52)
[2017-10-04] MEDS ORDERED: Gabapentin 400 MG Cap PO SCH (20:00)
[2017-10-04] MEDS: Pantoprazole 40 MG Vial IVPUSH SCH (20:55)
[2017-10-04] MEDS: atorvaSTATin 10 MG Tab PO SCH (20:55)
[2017-10-04] MEDS: Acetaminophen 500 MG Tab PO PRN (20:56)
[2017-10-04] MEDS: Amitriptyline 25 MG Tab PO SCH (20:56)
[2017-10-04] MEDS: diphenhydrAMINE 25 MG Cap PO PRN (20:56)
[2017-10-05] MEDS: Ketorolac 15 MG/ML SDV IVPUSH SCH ×4 (03:59→22:03)
[2017-10-05] MEDS: Gabapentin 400 MG Cap PO SCH ×2 (08:29→20:29)
[2017-10-05] MEDS: FLUoxetine 20 MG Cap PO SCH (08:29)
[2017-10-05] MEDS: Acetaminophen 325 MG Tab PO PRN ×2 (12:20→18:53)
[2017-10-05] MEDS: Diazepam 5 MG Tab PO PRN (14:34)
[2017-10-05] MEDS ORDERED: Ketorolac 15 MG/ML SDV ONE (18:45)
[2017-10-05] MEDS ORDERED: ClonazePAM 0.5 MG Tab PO PRN (19:06)
--- NOTE | 2017-10-05 19:18 | PCM.PN ---
- General Info Date of Service: 10/05/17 Admission Dx/Problem (Free Text): Patient admitted observation after suspected Valium overdose. Immediate reversal of significant CALL CENTER SUPPORT REPRESENTATIVE depression noted in ER after Romazicon. Subjective Update: Patient says she feels like normal self. Repeatedly is saying to staff that she is not a drug abuser. Frequently asking what explanation is for last night's visit to ER. No active new complaints at this time. Functional Status: Reports: Pain Controlled, Tolerating Diet - Review of Systems General: Reports: No Symptoms HEENT: Reports: Headaches Pulmonary: Reports: No Symptoms Cardiovascular: Reports: No Symptoms Gastrointestinal: Reports: No Symptoms Genitourinary: Reports: No Symptoms Musculoskeletal: Reports: No Symptoms Skin: Reports: No Symptoms Neurological: Reports: No Symptoms Psychiatric: Reports: No Symptoms - Patient Data Vitals - Most Recent: Last Vital Signs Temp 98.1 F 10/05/17 15:36 Pulse 91 10/05/17 15:36 Resp 20 10/05/17 15:36 BP 141/90 H 10/05/17 15:36 Pulse Ox 95 10/05/17 15:36 Weight - Most Recent: 150 lb 8.012 oz I&O - Last 24 Hours: Intake & Output 10/05/17 10/05/17 10/05/17 06:59 14:59 22:59 Intake Total 2640 540 Output Total 1200 450 Balance 1440 90 Med Orders - Current: Current Medications Acetaminophen (Tylenol Extra Strength) 500 mg PO BEDTIME PRN PRN Reason: Sleep Last Admin: 10/04/17 20:56 Dose: 500 mg Acetaminophen (Tylenol) 650 mg PO Q4H PRN PRN Reason: Pain Last Admin: 10/05/17 18:53 Dose: 650 mg Amitriptyline HCl (Elavil) 75 mg PO BEDTIME NID[facility] Last Admin: 10/04/17 20:56 Dose: 75 mg Atorvastatin Calcium (Lipitor) 20 mg PO BEDTIME [facility] Last Admin: 10/04/17 20:55 Dose: 20 mg Clonazepam (Klonopin) 0.5 mg PO BID PRN PRN Reason: Anxiety Clonazepam (Klonopin) 1 mg PO BEDTIME N[facility] Diphenhydramine HCl (Benadryl) 50 mg PO Q4H PRN PRN Reason: Allergies Diphenhydramine HCl (Benadryl) 25 mg PO BEDTIME PRN PRN Reason: sleep Last Admin: 10/04/17 20:56 Dose: 25 mg Fluoxetine HCl (Prozac) 40 mg PO DAILY [facility] Last Admin: 10/05/17 08:29 Dose: 40 mg Gabapentin (Neurontin) 800 mg PO Q12HR [facility] Last Admin: 10/05/17 08:29 Dose: 800 mg Sodium Chloride (Normal Saline) 500 mls @ 100 mls/hr IV ASDIRECTED [facility] Last Admin: 10/02/17 22:27 Dose: 100 mls/hr Ketorolac Tromethamine (Toradol) 15 mg IVPUSH Q6HR [facility] Stop: 10/09/17 17:34 Last Admin: 10/05/17 18:47 Dose: 15 mg Loperamide HCl (Imodium Ad) 2 mg PO ASDIRECTED PRN PRN Reason: Diarrhea Last Admin: 10/04/17 20:55 Dose: 2 mg Pantoprazole Sodium (Protonix Iv) 40 mg IVPUSH BEDTIME [facility] Last Admin: 10/04/17 20:55 Dose: 40 mg Simethicone (Simethicone) 125 mg PO ASDIRECTED PRN PRN Reason: Indigestion Discontinued Medications Amitriptyline HCl (Elavil) 75 mg PO DAILY [facility] Last Admin: 10/03/17 09:05 Dose: Not Given Bupropion HCl (Wellbutrin Xl) 300 mg PO DAILY [facility] Last Admin: 10/04/17 08:23 Dose: 300 mg Clonazepam (Klonopin) 2 mg PO BEDTIME [facility] Diazepam (Valium.) 5 mg PO TID PRN PRN Reason: Anxiety Last Admin: 10/05/17 14:34 Dose: 5 mg Duloxetine HCl (Cymbalta) 60 mg PO DAILY [facility] Last Admin: 10/03/17 09:05 Dose: Not Given Duloxetine HCl (Cymbalta) 60 mg PO DAILY@1600 [facility] Last Admin: 10/03/17 17:12 Dose: 60 mg Flumazenil (Romazicon) 0.5 mg IVPUSH ONETIME ONE Stop: 10/02/17 21:05 Last Admin: 10/02/17 21:07 Dose: 0.5 mg Gabapentin (Neurontin) 800 mg PO QID [facility] Last Admin: 10/04/17 11:52 Dose: 800 mg Gabapentin (Neurontin) 400 mg PO Q12HR [facility] Ibuprofen (Motrin) 800 mg PO Q8HR PRN PRN Reason: Pain Last Admin: 10/03/17 07:41 Dose: 800 mg Ketorolac Tromethamine (Toradol) 15 mg IVPUSH Q6H [facility] Stop: 10/09/17 17:34 Ketorolac Tromethamine (Toradol) Confirm Administered Dose 15 mg .ROUTE .STK- MED ONE Stop: 10/05/17 18:46 Last Admin: 10/05/17 18:49 Dose: Not Given Naloxone HCl (Narcan) Confirm Administered Dose 0.4 mg .ROUTE .STK-MED ONE Stop: 10/02/17 20:26 Last Admin: 10/02/17 20:26 Dose: 0.4 mg Non-Formulary Medication (Acetaminophen/Diphenhydramine [Tylenol Pm Ex-Strength Caplet]) 1 each PO ASDIRECTED PRN PRN Reason: Sleep Omeprazole (Omeprazole) 20 mg PO BEDTIME [facility] Last Admin: 10/03/17 19:49 Dose: 20 mg - Exam General: Alert, Cooperative, No Acute Distress HEENT: Mucous Membr. Moist/[place] Neck: Trachea Midline, No JVD Lungs: Clear to Auscultation, Normal Respiratory Effort Cardiovascular: Regular Rate, Regular Rhythm GI/Abdominal Exam: Soft, Non-Tender, No Distention (Female) Exam: Deferred Back Exam: Other (surgical scar well healed) Extremities: Normal Inspection, Non-Tender, No Pedal Edema Skin: Warm, Dry, Intact Wound/Incisions: Healing Well Neurological: Other (less tremor today) Psy/Mental Status: Alert, Anxious - Problem List & Annotations (1) Altered mental state SNOMED Code(s): 100543788 Code(s): R41.82 - ALTERED MENTAL STATUS, UNSPECIFIED Status: Acute Priority: High Current Visit: Yes Onset Date: ~10/02/17 Qualifiers: Altered mental status type: stupor Qualified Code(s): R40.1 - Stupor Annotation/Comment:: Suspect due to Valium OD. Currently improved. Negative head CT. (2) Fall SNOMED Code(s): 4831320 Code(s): W19.XXXA - UNSPECIFIED FALL, INITIAL ENCOUNTER Status: Acute Priority: Low Current Visit: Yes Onset Date: 10/02/17 Qualifiers: Encounter type: initial encounter Qualified Code(s): W19.XXXA - Unspecified fall, initial encounter Annotation/Comment:: Does not appear to have any injuries acutely sustained from tonight's falls. (3) Valium dependence SNOMED Code(s): 637109325 Code(s): F13.20 - SEDATIVE, HYPNOTIC OR ANXIOLYTIC DEPENDENCE, UNCOMPLICATED Status: Acute Priority: High Current Visit: Yes Annotation/Comment:: Patient has been taking Valium recently and previously was using Xanax. Currently prescribed VAlium TID PRN. By nature of the medication will have developed physical dependence from chronic use if is taking the medication multiple times daily. Suspect dependence may be factor. (4) Valium overdose SNOMED Code(s): 812483551 Code(s): T42.4X1A - POISONING BY BENZODIAZEPINES, ACCIDENTAL, INIT Status: Acute Priority: High Current Visit: Yes Onset Date: 10/02/17 Qualifiers: Encounter type: initial encounter Injury intent: accidental or unintentional Qualified Code(s): T42.4X1A - Poisoning by benzodiazepines, accidental (unintentional), initial encounter Annotation/Comment:: Patient denies intentional overdosing. Immediate improvement in LOC after given IV Romazicon to reverse Benzodiazepine action. Very adamant that she only takes a small amount of her Valium daily. Repeatedly says this to myself and staff. Denies any feelings of dependency and withdrawal. (5) Anxiety and depression SNOMED Code(s): 060791570 Code(s): F41.8 - OTHER SPECIFIED ANXIETY DISORDERS Status: Chronic Priority: Medium Current Visit: Yes (6) GERD (gastroesophageal reflux disease) SNOMED Code(s): 447617547 Code(s): K21.9 - GASTRO-ESOPHAGEAL REFLUX DISEASE WITHOUT ESOPHAGITIS Status: Chronic Priority: Low Current Visit: Yes Qualifiers: Esophagitis presence: esophagitis presence not specified Qualified Code(s) : K21.9 - Gastro-esophageal reflux disease without esophagitis (7) Abnormal liver function SNOMED Code(s): 60027383 Code(s): K76.89 - OTHER SPECIFIED DISEASES OF LIVER Status: Acute Current Visit: No (8) Anxiety SNOMED Code(s): 29449826 Code(s): F41.9 - ANXIETY DISORDER, UNSPECIFIED Status: Acute Current Visit: No (9) Anxiety disorder SNOMED Code(s): 336993400 Code(s): F41.9 - ANXIETY DISORDER, UNSPECIFIED Status: Acute Current Visit: No (10) Confusion SNOMED Code(s): 778787172 Code(s): R41.0 - DISORIENTATION, UNSPECIFIED Status: Acute Current Visit : No (11) Fall at home SNOMED Code(s): 38182371 Code(s): W19.XXXA - UNSPECIFIED FALL, INITIAL ENCOUNTER; Y92.099 - UNSP PLACE IN [facility] NON-INSTITUTIONAL RESIDENCE PLACE Status: Acute Current Visit: No (12) History of bulimia nervosa SNOMED Code(s): 198933144638919 Code(s): Z86.59 - PERSONAL HISTORY OF OTHER MENTAL AND BEHAVIORAL DISORDERS Status: Acute Current Visit: No (13) Liver function study, abnormal SNOMED Code(s): 389989460 Code(s): R94.5 - ABNORMAL RESULTS OF LIVER FUNCTION STUDIES Status: Acute Current Visit: No (14) Tachycardia SNOMED Code(s): 2238193 Code(s): R00.0 - TACHYCARDIA, UNSPECIFIED Status: Acute Current Visit: No (15) Hyperlipidemia SNOMED Code(s): 47766199 Code(s): E78.5 - HYPERLIPIDEMIA, UNSPECIFIED Status: Chronic Priority: Medium Current Visit: No Qualifiers: Hyperlipidemia type: unspecified Qualified Code(s): E78.5 - Hyperlipidemia , unspecified Annotation/Comment:: Currently under medical therapy. Note history of LFTs elevation (16) Mixed anxiety depressive disorder SNOMED Code(s): 361419994 Code(s): F41.8 - OTHER SPECIFIED ANXIETY DISORDERS Status: Chronic Priority: Medium Current Visit: No Annotation/Comment:: Moderate control of her anxiety. Continue to observe closely by her regular providers (17) Osteoarthritis SNOMED Code(s): 808391555 Code(s): M19.90 - UNSPECIFIED OSTEOARTHRITIS, UNSPECIFIED SITE Status: Chronic Priority: Medium Current Visit: No Qualifiers: Osteoarthritis location: multiple joints Osteoarthritis type: primary Qualified Code(s): M15.0 - Primary generalized (osteo)arthritis Annotation/Comment:: Stable by patient history (18) Peptic reflux disease SNOMED Code(s): 95285803 Code(s): K21.9 - GASTRO-ESOPHAGEAL REFLUX DISEASE WITHOUT ESOPHAGITIS Status: Chronic Priority: Medium Current Visit: No Annotation/Comment:: Stable by patient history (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 SNOMED Code(s): 015238204 Code(s): E88.89 - OTHER SPECIFIED METABOLIC DISORDERS Status: Acute Priority: High Current Visit: Yes - Problem List Review Problem List Initiated/Reviewed/Updated: Yes - My Orders Last 24 Hours: My Active Orders 10/04/17 20:00 Pantoprazole [ProTONIX IV] 40 mg IVPUSH BEDTIME 10/05/17 05:11 Carotid Comp [US] Routine EEG with Awake and Drowsy [EN] Routine 10/05/17 12:00 Acetaminophen [Tylenol] 650 mg PO Q4H PRN 10/05/17 19:06 ClonazePAM [KlonoPIN] 0.5 mg PO BID PRN 10/05/17 19:30 NIFEdipine [Procardia] 10 mg PO ONETIME ONE 10/05/17 20:00 ClonazePAM [KlonoPIN] 1 mg PO BEDTIME 10/11/17 08:00 Brain w wo Cont [MR] Routine MRA Head Without Contrast [Ang Head wo Cont] [MR] Routine 10/11/17 09:00 Ang Head wo Cont [MR] Routine - Assessment Assessment:: Valium overdose, CALL CENTER SUPPORT REPRESENTATIVE depression, immediately reversed by Romazicon. Patient denies overuse/dependency. Noted this morning that patient's blood pressure and pulse started to increase, as well as mild temp increase observed. Given 5mg of PO valium. Heart rate improved. This would support possible dependence on Valium and observed changes associated with withdrawal. Cross reaction check of patient's medications did yield multiple combinations that can lead to increased CALL CENTER SUPPORT REPRESENTATIVE depression from Valium, including: Cymbalta + Valium Elavil + Valium Neurontin + Valium Prozac + Valium Neurontin + Elevil Neurontin + Prozac (this could support theory of increased CALL CENTER SUPPORT REPRESENTATIVE depression while patient takes appropriate prescribed amount of Valium) - Plan Plan:: Will continue to monitor patient for trends/vital signs. PT and OT consult pending tomorrow given patient's observed shakiness and poor balance. Patient's primary clinic will be taking over care tomorrow. Patient will likely need adjustment in current medications and close follow up . 10/04/17 Denny Sawyer MD Change to inpatient for scheduled IV toradol and IV protonix. 10/05/17 Denny Sawyer MD Improvement today. Less pain. Less mental confusion. Less tremors. Continue medical therapy.
[2017-10-05] MEDS ORDERED: NIFEdipine 10 MG Cap PO ONE (19:30)
[2017-10-05] MEDS ORDERED: ClonazePAM 0.5 MG Tab PO SCH (20:00)
[2017-10-05] MEDS: atorvaSTATin 10 MG Tab PO SCH (20:30)
[2017-10-05] MEDS: Amitriptyline 25 MG Tab PO SCH (20:30)
[2017-10-05] MEDS: Pantoprazole 40 MG Vial IVPUSH SCH (20:31)
[2017-10-05] MEDS: Acetaminophen 500 MG Tab PO PRN (22:03)
[2017-10-05] MEDS: diphenhydrAMINE 25 MG Cap PO PRN (22:03)
[2017-10-06] MEDS ORDERED: Sodium Chloride 0.9% 10 ML Syringe ONE (03:38)
[2017-10-06] MEDS: Ketorolac 15 MG/ML SDV IVPUSH SCH ×3 (06:00→16:07)
[2017-10-06] MEDS: FLUoxetine 20 MG Cap PO SCH (08:06)
[2017-10-06] MEDS: Gabapentin 400 MG Cap PO SCH (08:06)
[2017-10-06 12:20] VITALS: BP 123/72
--- NOTE | 2017-10-06 16:32 | PCM.PN ---
- General Info Date of Service: 10/06/17 Admission Dx/Problem (Free Text): Patient admitted observation after suspected Valium overdose. Immediate reversal of significant MARKETING DATABASE ANALYST depression noted in ER after Romazicon. Subjective Update: Patient says she feels like normal self. Repeatedly is saying to staff that she is not a drug abuser. Frequently asking what explanation is for last night's visit to ER. No active new complaints at this time. Functional Status: Reports: Pain Controlled - Review of Systems General: Reports: No Symptoms HEENT: Reports: No Symptoms Pulmonary: Reports: No Symptoms Cardiovascular: Reports: No Symptoms Gastrointestinal: Reports: No Symptoms Genitourinary: Reports: No Symptoms Musculoskeletal: Reports: No Symptoms Skin: Reports: No Symptoms Neurological: Reports: No Symptoms Psychiatric: Reports: No Symptoms - Patient Data Vitals - Most Recent: Last Vital Signs Temp 99.4 F 10/06/17 12:00 Pulse 110 H 10/06/17 12:00 Resp 16 10/06/17 12:00 BP 123/72 10/06/17 12:00 Pulse Ox 93 L 10/06/17 12:00 Weight - Most Recent: 150 lb 8.012 oz I&O - Last 24 Hours: Intake & Output 10/06/17 10/06/17 10/06/17 06:59 14:59 22:59 Intake Total 150 1450 Output Total 800 Balance 150 650 Med Orders - Current: Current Medications Acetaminophen (Tylenol Extra Strength) 500 mg PO BEDTIME PRN PRN Reason: Sleep Last Admin: 10/05/17 22:03 Dose: 500 mg Acetaminophen (Tylenol) 650 mg PO Q4H PRN PRN Reason: Pain Last Admin: 10/05/17 18:53 Dose: 650 mg Amitriptyline HCl (Elavil) 75 mg PO BEDTIME [facility] Last Admin: 10/05/17 20:30 Dose: 75 mg Atorvastatin Calcium (Lipitor) 20 mg PO BEDTIME [facility] Last Admin: 10/05/17 20:30 Dose: 20 mg Clonazepam (Klonopin) 0.5 mg PO BID PRN PRN Reason: Anxiety Last Admin: 10/06/17 12:53 Dose: 0.5 mg Clonazepam (Klonopin) 1 mg PO BEDTIME [facility] Last Admin: 10/05/17 20:30 Dose: 1 mg Diphenhydramine HCl (Benadryl) 50 mg PO Q4H PRN PRN Reason: Allergies Diphenhydramine HCl (Benadryl) 25 mg PO BEDTIME PRN PRN Reason: sleep Last Admin: 10/05/17 22:03 Dose: 25 mg Fluoxetine HCl (Prozac) 40 mg PO DAILY [facility] Last Admin: 10/06/17 08:06 Dose: 40 mg Gabapentin (Neurontin) 800 mg PO Q12HR [facility] Last Admin: 10/06/17 08:06 Dose: 800 mg Sodium Chloride (Normal Saline) 500 mls @ 100 mls/hr IV ASDIRECTED [facility] Last Admin: 10/02/17 22:27 Dose: 100 mls/hr Ketorolac Tromethamine (Toradol) 15 mg IVPUSH Q6HR [facility] Stop: 10/09/17 17:34 Last Admin: 10/06/17 16:07 Dose: 15 mg Loperamide HCl (Imodium Ad) 2 mg PO ASDIRECTED PRN PRN Reason: Diarrhea Last Admin: 10/04/17 20:55 Dose: 2 mg Pantoprazole Sodium (Protonix Iv) 40 mg IVPUSH BEDTIME [facility] Last Admin: 10/05/17 20:31 Dose: 40 mg Simethicone (Simethicone) 125 mg PO ASDIRECTED PRN PRN Reason: Indigestion Discontinued Medications Amitriptyline HCl (Elavil) 75 mg PO DAILY [facility] Last Admin: 10/03/17 09:05 Dose: Not Given Bupropion HCl (Wellbutrin Xl) 300 mg PO DAILY [facility] Last Admin: 10/04/17 08:23 Dose: 300 mg Clonazepam (Klonopin) 2 mg PO BEDTIME [facility] Diazepam (Valium.) 5 mg PO TID PRN PRN Reason: Anxiety Last Admin: 10/05/17 14:34 Dose: 5 mg Duloxetine HCl (Cymbalta) 60 mg PO DAILY [facility] Last Admin: 10/03/17 09:05 Dose: Not Given Duloxetine HCl (Cymbalta) 60 mg PO DAILY@1600 [facility] Last Admin: 10/03/17 17:12 Dose: 60 mg Flumazenil (Romazicon) 0.5 mg IVPUSH ONETIME ONE Stop: 10/02/17 21:05 Last Admin: 10/02/17 21:07 Dose: 0.5 mg Gabapentin (Neurontin) 800 mg PO QID [facility] Last Admin: 10/04/17 11:52 Dose: 800 mg Gabapentin (Neurontin) 400 mg PO Q12HR [facility] Ibuprofen (Motrin) 800 mg PO Q8HR PRN PRN Reason: Pain Last Admin: 10/03/17 07:41 Dose: 800 mg Ketorolac Tromethamine (Toradol) 15 mg IVPUSH Q6H [facility] Stop: 10/09/17 17:34 Ketorolac Tromethamine (Toradol) Confirm Administered Dose 15 mg .ROUTE .STK- MED ONE Stop: 10/05/17 18:46 Last Admin: 10/05/17 18:49 Dose: Not Given Naloxone HCl (Narcan) Confirm Administered Dose 0.4 mg .ROUTE .STK-MED ONE Stop: 10/02/17 20:26 Last Admin: 10/02/17 20:26 Dose: 0.4 mg Nifedipine (Procardia) 10 mg PO ONETIME ONE Stop: 10/05/17 19:31 Last Admin: 10/05/17 20:30 Dose: 10 mg Non-Formulary Medication (Acetaminophen/Diphenhydramine [Tylenol Pm Ex-Strength Caplet]) 1 each PO ASDIRECTED PRN PRN Reason: Sleep Omeprazole (Omeprazole) 20 mg PO BEDTIME [facility] Last Admin: 10/03/17 19:49 Dose: 20 mg Sodium Chloride (Saline Flush) 10 ml .ROUTE .STK-MED ONE Stop: 10/06/17 03:39 - Exam General: Alert, Cooperative, No Acute Distress HEENT: Pupils Equal, Pupils Reactive, Mucous Membr. Moist/[place] Neck: Trachea Midline, No JVD Lungs: Clear to Auscultation, Normal Respiratory Effort Cardiovascular: Regular Rate, Regular Rhythm, Tachycardia (at times) GI/Abdominal Exam: Soft, Non-Tender, No Distention (Female) Exam: Deferred Back Exam: Normal Inspection, Other (surgical scar well healed) Skin: Warm, Dry, Intact Neurological: No New Focal Deficit Psy/Mental Status: Alert, Normal Affect, Normal Mood, Anxious (at times) - Problem List & Annotations (1) Altered mental state SNOMED Code(s): 628245622 Code(s): R41.82 - ALTERED MENTAL STATUS, UNSPECIFIED Status: Acute Priority: High Current Visit: Yes Onset Date: ~10/02/17 Qualifiers: Altered mental status type: stupor Qualified Code(s): R40.1 - Stupor Annotation/Comment:: Suspect due to Valium build up in your body. Also build up of other medications. Currently improved. Negative head CT. (2) Fall SNOMED Code(s): 3847762 Code(s): W19.XXXA - UNSPECIFIED FALL, INITIAL ENCOUNTER Status: Acute Priority: Low Current Visit: Yes Onset Date: 10/02/17 Qualifiers: Encounter type: initial encounter Qualified Code(s): W19.XXXA - Unspecified fall, initial encounter Annotation/Comment:: Does not appear to have any injuries acutely sustained from tonight's falls. (3) Valium dependence SNOMED Code(s): 947354774 Code(s): F13.20 - SEDATIVE, HYPNOTIC OR ANXIOLYTIC DEPENDENCE, UNCOMPLICATED Status: Acute Priority: High Current Visit: Yes Annotation/Comment:: Patient has been taking Valium recently and previously was using Xanax. Currently prescribed VAlium TID PRN. By nature of the medication will have developed physical dependence from chronic use if is taking the medication multiple times daily. Suspect dependence may be factor. (4) Valium overdose SNOMED Code(s): 452568533 Code(s): T42.4X1A - POISONING BY BENZODIAZEPINES, ACCIDENTAL, INIT Status: Acute Priority: High Current Visit: Yes Onset Date: 10/02/17 Qualifiers: Encounter type: initial encounter Injury intent: accidental or unintentional Qualified Code(s): T42.4X1A - Poisoning by benzodiazepines, accidental (unintentional), initial encounter Annotation/Comment:: Patient denies intentional overdosing. Immediate improvement in LOC after given IV Romazicon to reverse Benzodiazepine action. Very adamant that she only takes a small amount of her Valium daily. Repeatedly says this to myself and staff. Denies any feelings of dependency and withdrawal. (5) Anxiety and depression SNOMED Code(s): 696645983 Code(s): F41.8 - OTHER SPECIFIED ANXIETY DISORDERS Status: Chronic Priority: Medium Current Visit: Yes (6) GERD (gastroesophageal reflux disease) SNOMED Code(s): 154540726 Code(s): K21.9 - GASTRO-ESOPHAGEAL REFLUX DISEASE WITHOUT ESOPHAGITIS Status: Chronic Priority: Low Current Visit: Yes Qualifiers: Esophagitis presence: esophagitis presence not specified Qualified Code(s) : K21.9 - Gastro-esophageal reflux disease without esophagitis (7) Abnormal liver function SNOMED Code(s): 55899075 Code(s): K76.89 - OTHER SPECIFIED DISEASES OF LIVER Status: Acute Current Visit: No (8) Anxiety SNOMED Code(s): 08036987 Code(s): F41.9 - ANXIETY DISORDER, UNSPECIFIED Status: Acute Current Visit: No (9) Anxiety disorder SNOMED Code(s): 562559608 Code(s): F41.9 - ANXIETY DISORDER, UNSPECIFIED Status: Acute Current Visit: No (10) Confusion SNOMED Code(s): 137935291 Code(s): R41.0 - DISORIENTATION, UNSPECIFIED Status: Acute Current Visit : No (11) Fall at home SNOMED Code(s): 70297559 Code(s): W19.XXXA - UNSPECIFIED FALL, INITIAL ENCOUNTER; Y92.099 - UNSP PLACE IN [facility] NON-INSTITUTIONAL RESIDENCE PLACE Status: Acute Current Visit: No (12) History of bulimia nervosa SNOMED Code(s): 274501875783316 Code(s): Z86.59 - PERSONAL HISTORY OF OTHER MENTAL AND BEHAVIORAL DISORDERS Status: Acute Current Visit: No (13) Liver function study, abnormal SNOMED Code(s): 694252290 Code(s): R94.5 - ABNORMAL RESULTS OF LIVER FUNCTION STUDIES Status: Acute Current Visit: No (14) Tachycardia SNOMED Code(s): 5726721 Code(s): R00.0 - TACHYCARDIA, UNSPECIFIED Status: Acute Current Visit: No (15) Hyperlipidemia SNOMED Code(s): 22961206 Code(s): E78.5 - HYPERLIPIDEMIA, UNSPECIFIED Status: Chronic Priority: Medium Current Visit: No Qualifiers: Hyperlipidemia type: unspecified Qualified Code(s): E78.5 - Hyperlipidemia , unspecified Annotation/Comment:: Currently under medical therapy. Note history of LFTs elevation (16) Mixed anxiety depressive disorder SNOMED Code(s): 895204289 Code(s): F41.8 - OTHER SPECIFIED ANXIETY DISORDERS Status: Chronic Priority: Medium Current Visit: No Annotation/Comment:: Moderate control of her anxiety. Continue to observe closely by her regular providers (17) Osteoarthritis SNOMED Code(s): 459725150 Code(s): M19.90 - UNSPECIFIED OSTEOARTHRITIS, UNSPECIFIED SITE Status: Chronic Priority: Medium Current Visit: No Qualifiers: Osteoarthritis location: multiple joints Osteoarthritis type: primary Qualified Code(s): M15.0 - Primary generalized (osteo)arthritis Annotation/Comment:: Stable by patient history (18) Peptic reflux disease SNOMED Code(s): 47167750 Code(s): K21.9 - GASTRO-ESOPHAGEAL REFLUX DISEASE WITHOUT ESOPHAGITIS Status: Chronic Priority: Medium Current Visit: No Annotation/Comment:: Stable by patient history (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 SNOMED Code(s): 338849145 Code(s): E88.89 - OTHER SPECIFIED METABOLIC DISORDERS Status: Acute Priority: High Current Visit: Yes - Problem List Review Problem List Initiated/Reviewed/Updated: Yes - My Orders Last 24 Hours: My Active Orders 10/05/17 19:06 ClonazePAM [KlonoPIN] 0.5 mg PO BID PRN 10/05/17 20:00 ClonazePAM [KlonoPIN] 1 mg PO BEDTIME 10/06/17 15:55 Discontinue Telemetry Monitoring [Cardiac Monitoring Discontinue] [RC] Click to Edit Peripheral IV Discontinue [OM.PC] Routine 10/06/17 16:24 Ready for Discharge [RC] PER UNIT ROUTINE 10/11/17 08:00 Brain w wo Cont [MR] Routine MRA Head Without Contrast [Ang Head wo Cont] [MR] Routine 10/11/17 09:00 Ang Head wo Cont [MR] Routine - Assessment Assessment:: Valium overdose, MARKETING DATABASE ANALYST depression, immediately reversed by Romazicon. Patient denies overuse/dependency. Noted this morning that patient's blood pressure and pulse started to increase, as well as mild temp increase observed. Given 5mg of PO valium. Heart rate improved. This would support possible dependence on Valium and observed changes associated with withdrawal. Cross reaction check of patient's medications did yield multiple combinations that can lead to increased MARKETING DATABASE ANALYST depression from Valium, including: Cymbalta + Valium Elavil + Valium Neurontin + Valium Prozac + Valium Neurontin + Elevil Neurontin + Prozac (this could support theory of increased MARKETING DATABASE ANALYST depression while patient takes appropriate prescribed amount of Valium) - Plan Plan:: Will continue to monitor patient for trends/vital signs. PT and OT consult pending tomorrow given patient's observed shakiness and poor balance. Patient's primary clinic will be taking over care tomorrow. Patient will likely need adjustment in current medications and close follow up . 10/04/17 Denny Sawyer MD Change to inpatient for scheduled IV toradol and IV protonix. 10/05/17 Denny Sawyer MD Improvement today. Less pain. Less mental confusion. Less tremors. Continue medical therapy. 10/06/17 Denny Sawyer MD She feels much better today. Stable and ready for discharge. Long discussion with her and her regarding all of her medications.
--- NOTE | 2017-10-06 16:43 | PCM.DCSUM1 ---
Discharge Summary - Discharge Data Discharge Date: 10/06/17 Discharge Disposition: Home, Self-Care 01 Condition: Good - Discharge Diagnosis/Problem(s) (1) Altered mental state SNOMED Code(s): 710660536 ICD Code: R41.82 - ALTERED MENTAL STATUS, UNSPECIFIED Status: Acute Priority: High Current Visit: Yes Onset Date: ~10/02/17 Problem Details: Suspect due to Valium build up in your body. Also build up of other medications. Currently improved. Negative head CT. Qualifiers: Altered mental status type: stupor Qualified Code(s): R40.1 - Stupor (2) Fall SNOMED Code(s): 0776413 ICD Code: W19.XXXA - UNSPECIFIED FALL, INITIAL ENCOUNTER Status: Acute Priority: Low Current Visit: Yes Onset Date: 10/02/17 Problem Details: Does not appear to have any injuries acutely sustained from tonight's falls. Qualifiers: Encounter type: initial encounter Qualified Code(s): W19.XXXA - Unspecified fall, initial encounter (3) Valium dependence SNOMED Code(s): 454912717 ICD Code: F13.20 - SEDATIVE, HYPNOTIC OR ANXIOLYTIC DEPENDENCE, UNCOMPLICATED Status: Acute Priority: High Current Visit: Yes Problem Details: Patient has been taking Valium recently and previously was using Xanax. Currently prescribed VAlium TID PRN. By nature of the medication will have developed physical dependence from chronic use if is taking the medication multiple times daily. Suspect dependence may be factor. (4) Valium overdose SNOMED Code(s): 861342627 ICD Code: T42.4X1A - POISONING BY BENZODIAZEPINES, ACCIDENTAL, INIT Status : Acute Priority: High Current Visit: Yes Onset Date: 10/02/17 Problem Details: Patient denies intentional overdosing. Immediate improvement in LOC after given IV Romazicon to reverse Benzodiazepine action. Very adamant that she only takes a small amount of her Valium daily. Repeatedly says this to myself and staff. Denies any feelings of dependency and withdrawal. Qualifiers: Encounter type: initial encounter Injury intent: accidental or unintentional Qualified Code(s): T42.4X1A - Poisoning by benzodiazepines, accidental (unintentional), initial encounter (5) Anxiety and depression SNOMED Code(s): 762013669 ICD Code: F41.8 - OTHER SPECIFIED ANXIETY DISORDERS Status: Chronic Priority: Medium Current Visit: Yes (6) GERD (gastroesophageal reflux disease) SNOMED Code(s): 436739885 ICD Code: K21.9 - GASTRO-ESOPHAGEAL REFLUX DISEASE WITHOUT ESOPHAGITIS Status: Chronic Priority: Low Current Visit: Yes Qualifiers: Esophagitis presence: esophagitis presence not specified Qualified Code(s) : K21.9 - Gastro-esophageal reflux disease without esophagitis (7) Abnormal liver function SNOMED Code(s): 01093405 ICD Code: K76.89 - OTHER SPECIFIED DISEASES OF LIVER Status: Acute Current Visit: No (8) Anxiety SNOMED Code(s): 16388836 ICD Code: F41.9 - ANXIETY DISORDER, UNSPECIFIED Status: Acute Current Visit: No (9) Anxiety disorder SNOMED Code(s): 383898089 ICD Code: F41.9 - ANXIETY DISORDER, UNSPECIFIED Status: Acute Current Visit: No (10) Confusion SNOMED Code(s): 491049647 ICD Code: R41.0 - DISORIENTATION, UNSPECIFIED Status: Acute Current Visit : No (11) Fall at home SNOMED Code(s): 93232088 ICD Code: W19.XXXA - UNSPECIFIED FALL, INITIAL ENCOUNTER; Y92.099 - UNSP PLACE IN [facility] NON-INSTITUTIONAL RESIDENCE PLACE Status: Acute Current Visit: No (12) History of bulimia nervosa SNOMED Code(s): 437319541203272 ICD Code: Z86.59 - PERSONAL HISTORY OF OTHER MENTAL AND BEHAVIORAL DISORDERS Status: Acute Current Visit: No (13) Liver function study, abnormal SNOMED Code(s): 254099761 ICD Code: R94.5 - ABNORMAL RESULTS OF LIVER FUNCTION STUDIES Status: Acute Current Visit: No (14) Tachycardia SNOMED Code(s): 2972096 ICD Code: R00.0 - TACHYCARDIA, UNSPECIFIED Status: Acute Current Visit: No (15) Hyperlipidemia SNOMED Code(s): 69747396 ICD Code: E78.5 - HYPERLIPIDEMIA, UNSPECIFIED Status: Chronic Priority: Medium Current Visit: No Problem Details: Currently under medical therapy. Note history of LFTs elevation Qualifiers: Hyperlipidemia type: unspecified Qualified Code(s): E78.5 - Hyperlipidemia , unspecified (16) Mixed anxiety depressive disorder SNOMED Code(s): 432759387 ICD Code: F41.8 - OTHER SPECIFIED ANXIETY DISORDERS Status: Chronic Priority: Medium Current Visit: No Problem Details: Moderate control of her anxiety. Continue to observe closely by her regular providers (17) Osteoarthritis SNOMED Code(s): 710342830 ICD Code: M19.90 - UNSPECIFIED OSTEOARTHRITIS, UNSPECIFIED SITE Status: Chronic Priority: Medium Current Visit: No Problem Details: Stable by patient history Qualifiers: Osteoarthritis location: multiple joints Osteoarthritis type: primary Qualified Code(s): M15.0 - Primary generalized (osteo)arthritis (18) Peptic reflux disease SNOMED Code(s): 12299516 ICD Code: K21.9 - GASTRO-ESOPHAGEAL REFLUX DISEASE WITHOUT ESOPHAGITIS Status: Chronic Priority: Medium Current Visit: No Problem Details: Stable by patient history (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 may start driving tomorrow) Showering/Bathing: May Shower Other/Special Instructions: Follow up at [facility] in 1-2 weeks for a check up. Call for day and time. - Discharge Plan Prescriptions/Med Rec: Amitriptyline HCl 75 mg PO BEDTIME #90 tablet atorvaSTATin [Lipitor] 20 mg PO BEDTIME #90 tab clonazePAM [Klonopin] 1 mg PO BEDTIME #100 tablet FLUoxetine [PROzac] 40 mg PO DAILY #90 cap Gabapentin [Neurontin] 800 mg PO DAILY #60 tab Home Medications: Home Meds Omeprazole 20 mg PO BEDTIME 01/24/15 [History] Ibuprofen 800 mg PO Q8HR PRN 08/13/15 [History] diphenhydrAMINE [Benadryl] 50 mg PO Q4H PRN #100 cap 06/10/16 [Rx] Acetaminophen/Diphenhydramine [Tylenol Pm Ex-Strength Caplet] 1 each PO BEDTIME PRN 10/02/17 [History] Eluxadoline [Viberzi] 100 mg PO BID 10/02/17 [History] Simethicone [Gas-X] 125 mg PO ASDIRECTED PRN 10/02/17 [History] Amitriptyline HCl 75 mg PO BEDTIME #90 tablet 01/24/18 [Rx] FLUoxetine [PROzac] 40 mg PO DAILY #90 cap 10/06/17 [Rx] Gabapentin [Neurontin] 800 mg PO DAILY #60 tab 10/06/17 [Rx] atorvaSTATin [Lipitor] 20 mg PO BEDTIME #90 tab 10/06/17 [Rx] clonazePAM [Klonopin] 1 mg PO BEDTIME #100 tablet 10/06/17 [Rx] Patient Handouts: Diazepam tablets, Flumazenil injection Forms: ED Department Discharge Referrals: Ronda Wyatt PA [ED Midlevel Provider] - - Discharge Summary/Plan Comment DC Time >30 min.: No Discharge Summary/Plan Comment: 10/06/17 Denny Sawyer MD 62 year old WF experienced a fall, altered mental status at a friends house, in the ER symptoms reversed with romazicon. Drug screen done +tricyclic antidepressants (she is on elavil) and +benzodiazapines (she is on diazapam). She has been on medical terminologist medications. Impression is she developed a build up of medications in her body which caused the reaction. Medications were adjusted and she spontaneously improved over a couple of days. She was also given IV toradol for her chronic/acute pain. Medication education discussed several times during hospitalization. Her and her (who was present for the discussions) voiced understanding. We also discussed different choices if there is concern that she had taken her medications at the wrong time or the incorrect amounts. She feels she is able to take her medications at the correct doses and at the correct times. - Patient Data Vitals - Most Recent: Last Vital Signs Temp 99.4 F 10/06/17 12:00 Pulse 110 H 10/06/17 12:00 Resp 16 10/06/17 12:00 BP 123/72 10/06/17 12:00 Pulse Ox 93 L 10/06/17 12:00 Weight - Most Recent: 150 lb 8.012 oz I&O - Last 24 hours: Intake & Output 10/06/17 10/06/17 10/06/17 06:59 14:59 22:59 Intake Total 150 1450 Output Total 800 Balance 150 650 Med Orders - Current: Current Medications Acetaminophen (Tylenol Extra Strength) 500 mg PO BEDTIME PRN PRN Reason: Sleep Last Admin: 10/05/17 22:03 Dose: 500 mg Acetaminophen (Tylenol) 650 mg PO Q4H PRN PRN Reason: Pain Last Admin: 10/05/17 18:53 Dose: 650 mg Amitriptyline HCl (Elavil) 75 mg PO BEDTIME NIDHI Last Admin: 10/05/17 20:30 Dose: 75 mg Atorvastatin Calcium (Lipitor) 20 mg PO BEDTIME NIDHI Last Admin: 10/05/17 20:30 Dose: 20 mg Clonazepam (Klonopin) 0.5 mg PO BID PRN PRN Reason: Anxiety Last Admin: 10/06/17 12:53 Dose: 0.5 mg Clonazepam (Klonopin) 1 mg PO BEDTIME NIDHI Last Admin: 10/05/17 20:30 Dose: 1 mg Diphenhydramine HCl (Benadryl) 50 mg PO Q4H PRN PRN Reason: Allergies Diphenhydramine HCl (Benadryl) 25 mg PO BEDTIME PRN PRN Reason: sleep Last Admin: 10/05/17 22:03 Dose: 25 mg Fluoxetine HCl (Prozac) 40 mg PO DAILY [facility] Last Admin: 10/06/17 08:06 Dose: 40 mg Gabapentin (Neurontin) 800 mg PO Q12HR [facility] Last Admin: 10/06/17 08:06 Dose: 800 mg Sodium Chloride (Normal Saline) 500 mls @ 100 mls/hr IV ASDIRECTED NIDHI Last Admin: 10/02/17 22:27 Dose: 100 mls/hr Ketorolac Tromethamine (Toradol) 15 mg IVPUSH Q6HR NIDHI Stop: 10/09/17 17:34 Last Admin: 10/06/17 16:07 Dose: 15 mg Loperamide HCl (Imodium Ad) 2 mg PO ASDIRECTED PRN PRN Reason: Diarrhea Last Admin: 10/04/17 20:55 Dose: 2 mg Pantoprazole Sodium (Protonix Iv) 40 mg IVPUSH BEDTIME [facility] Last Admin: 10/05/17 20:31 Dose: 40 mg Simethicone (Simethicone) 125 mg PO ASDIRECTED PRN PRN Reason: Indigestion Discontinued Medications Amitriptyline HCl (Elavil) 75 mg PO DAILY [facility] Last Admin: 10/03/17 09:05 Dose: Not Given Bupropion HCl (Wellbutrin Xl) 300 mg PO DAILY [facility] Last Admin: 10/04/17 08:23 Dose: 300 mg Clonazepam (Klonopin) 2 mg PO BEDTIME NIDHI Diazepam (Valium.) 5 mg PO TID PRN PRN Reason: Anxiety Last Admin: 10/05/17 14:34 Dose: 5 mg Duloxetine HCl (Cymbalta) 60 mg PO DAILY [facility] Last Admin: 10/03/17 09:05 Dose: Not Given Duloxetine HCl (Cymbalta) 60 mg PO DAILY@1600 [facility] Last Admin: 10/03/17 17:12 Dose: 60 mg Flumazenil (Romazicon) 0.5 mg IVPUSH ONETIME ONE Stop: 10/02/17 21:05 Last Admin: 10/02/17 21:07 Dose: 0.5 mg Gabapentin (Neurontin) 800 mg PO QID [facility] Last Admin: 10/04/17 11:52 Dose: 800 mg Gabapentin (Neurontin) 400 mg PO Q12HR NIDHI Ibuprofen (Motrin) 800 mg PO Q8HR PRN PRN Reason: Pain Last Admin: 10/03/17 07:41 Dose: 800 mg Ketorolac Tromethamine (Toradol) 15 mg IVPUSH Q6H [facility] Stop: 10/09/17 17:34 Ketorolac Tromethamine (Toradol) Confirm Administered Dose 15 mg .ROUTE .STK- MED ONE Stop: 10/05/17 18:46 Last Admin: 10/05/17 18:49 Dose: Not Given Naloxone HCl (Narcan) Confirm Administered Dose 0.4 mg .ROUTE .STK-MED ONE Stop: 10/02/17 20:26 Last Admin: 10/02/17 20:26 Dose: 0.4 mg Nifedipine (Procardia) 10 mg PO ONETIME ONE Stop: 10/05/17 19:31 Last Admin: 10/05/17 20:30 Dose: 10 mg Non-Formulary Medication (Acetaminophen/Diphenhydramine [Tylenol Pm Ex-Strength Caplet]) 1 each PO ASDIRECTED PRN PRN Reason: Sleep Omeprazole (Omeprazole) 20 mg PO BEDTIME [facility] Last Admin: 10/03/17 19:49 Dose: 20 mg Sodium Chloride (Saline Flush) 10 ml .ROUTE .STK-MED ONE Stop: 10/06/17 03:39 *Q Meaningful Use (DIS) - VTE *Q VTE Criteria *Q: - Stroke *Q Stroke Criteria *Q: - AMI *Q AMI Criteria *Q:
== END 2017-10-06 16:40 | disposition home or self-care (01) | DRG 918 ==
LOC: LL.ED 20:21 → LL.MS 21:24 → OBSVTOIN 10-04 17:29
PROVIDERS: ADMIT Emergency Medicine; ATTEND Family Medicine
DX: T42.4X1A Poisoning by benzodiazepines, accidental (unintentional), initial encounter (principal); F13.20 Sedative, hypnotic or anxiolytic dependence, uncomplicated; R40.1 Stupor; F41.9 Anxiety disorder, unspecified; R29.6 Repeated falls; Z91.81 History of falling; W19.XXXA Unspecified fall, initial encounter; R41.82 Altered mental status, unspecified; E88.89 Other specified metabolic disorders; K76.89 Other specified diseases of liver; R41.0 Disorientation, unspecified; R94.5 Abnormal results of liver function studies; R00.0 Tachycardia, unspecified; K21.9 Gastro-esophageal reflux disease without esophagitis; M15.0 Primary generalized (osteo)arthritis; Z96.659 Presence of unspecified artificial knee joint; Z98.1 Arthrodesis status; M54.9 Dorsalgia, unspecified; G89.29 Other chronic pain; Z86.59 Personal history of other mental and behavioral disorders; Z85.038 Personal history of other malignant neoplasm of large intestine; E78.5 Hyperlipidemia, unspecified; Z86.718 Personal history of other venous thrombosis and embolism; Z86.711 Personal history of pulmonary embolism; H54.7 Unspecified visual loss; Z91.041 Radiographic dye allergy status; Z88.5 Allergy status to narcotic agent; Z88.0 Allergy status to penicillin; Z88.8 Allergy status to other drugs, medicaments and biological substances; Y92.099 Unspecified place in other non-institutional residence as the place of occurrence of the external cause
CPT/HCPCS: 36415; 51702; 70450; 80053; 80171; 80305; 81001; 82150; 83605; 83735; 85025; 93005; 93010; 93880; 94761; 96361; 96374; 96375; 99220; 99224; 99285; A9270-GY; C9113; G0378; G0480; J1885; J2310; J3490; J7040; J7050

== ENCOUNTER 2018-02-03 12:38 | Day surgery (SDC) | payer MEDICARE, BC ==
[~2018-02-03 12:38] MED LIST: Lactated Ringers 1,000 ML IV SCH; Sodium Chloride 0.9% 10 ML Syringe FLUSH PRN
[2018-02-03] MEDS ORDERED: Midazolam 1 MG/ML 2 ML SDV ONE ×2 (13:02→13:13)
[2018-02-03] MEDS ORDERED: fentaNYL 100 MCG/2 ML SDV ONE ×2 (13:02→13:13)
[2018-02-03] MEDS ORDERED: Propofol 200 MG/20 ML SDV ONE ×2 (13:02→13:13)
--- NOTE | 2018-02-03 13:08 | PCM.PN ---
- General Info Date of Service: 02/03/18 - Review of Systems Systems Review Comment:: 63-year-old female here for EGD and colonoscopy. She has been having symptoms of unexplained diarrhea and also has had a right-sided abdominal pain etiology of which is unclear. She is medically stable to proceed today there is no significant change in her health status since her recent evaluation 2 weeks ago. I have again reviewed the proposed upper and lower endoscopy with the patient. She understands indications and risks and agrees to proceed. - Patient Data Vitals - Most Recent: Last Vital Signs Temp 98.9 F 02/03/18 12:58 Pulse 105 H 02/03/18 12:58 Resp 20 02/03/18 12:58 BP 149/86 H 02/03/18 12:58 Pulse Ox 99 02/03/18 12:58 Weight - Most Recent: 67.132 kg Med Orders - Current: Current Medications Lactated Ringer's (Ringers, Lactated) 1,000 mls @ 125 mls/hr IV ASDIRECTED NIDHI Sodium Chloride (Saline Flush) 10 ml FLUSH ASDIRECTED PRN PRN Reason: Keep Vein Open Discontinued Medications Fentanyl (Sublimaze) Confirm Administered Dose 100 mcg .ROUTE .STK-MED ONE Stop: 02/03/18 13:03 Midazolam HCl (Versed 1 Mg/Ml) Confirm Administered Dose 2 mg .ROUTE .STK-MED ONE Stop: 02/03/18 13:03 Propofol (Diprivan 20 Ml) Confirm Administered Dose 400 mg .ROUTE .STK-MED ONE Stop: 02/03/18 13:03 - Problem List Review Problem List Initiated/Reviewed/Updated: Yes - Assessment Assessment:: Diarrhea Abdominal pain - Plan Plan:: EGD and colonoscopy
[2018-02-03] MEDS ORDERED: Lidocaine 2% 5 ML SDV ONE (13:13)
--- NOTE | 2018-02-03 14:10 | PCM.OPNOTE ---
- General Post-Op/Procedure Note Date of Surgery/Procedure: 02/03/18 Operative Procedure(s): EGD with biopsy and colonoscopy with biopsy Findings: Normal-appearing upper and lower endoscopy Pre Op Diagnosis: Abdominal pain and diarrhea Post-Op Diagnosis: Normal upper and lower endoscopy Anesthesia Technique: MAC Primary Surgeon: Nikhil Huggins Pathology: Biopsies of gastric antrum and distal esophagus Biopsies of duodenum and terminal ileum Biopsies of right and left colon Output, Urine Amount: 0 EBL in mLs: 3 Complications: None Condition: Good Free Text/Narrative:: Intake & Output 02/02/18 02/03/18 02/03/18 22:59 06:59 14:59 Intake Total 1000 Balance 1000
[2018-02-03 15:07] VITALS: BP 149/90
--- NOTE | 2018-02-03 16:42 | OR ---
Date of Procedure: 02/03/2018 PREOPERATIVE DIAGNOSIS: Abdominal pain and diarrhea. POSTOPERATIVE DIAGNOSIS: Normal upper and lower endoscopies. OPERATION PERFORMED: Esophagogastroduodenoscopy with biopsy and colonoscopy with biopsy. INDICATIONS FOR SURGERY: This 63-year-old female has a longstanding history of unexplained diarrhea and has been having some right-sided abdominal pain. She comes for diagnostic upper and lower endoscopies. FINDINGS: Structures viewed during the patient's procedures appeared normal. The esophagus, stomach, and the duodenum to the 3rd portion appeared normal without visible signs of ulceration, other lesions, or inflammation. The patient's colon was somewhat tortuous, but otherwise appeared normal as did her terminal ileum. DESCRIPTION OF PROCEDURE: The patient was taken to the operating room. She was given intravenous sedation. Her throat was topically anesthetized. The esophagus was intubated with the Olympus gastroscope under direct visualization. The scope was then carefully advanced down through the esophagus, stomach, and into the duodenum, where examination to the 3rd portion was performed. Random biopsies of the duodenum were taken to rule out celiac disease. The scope was withdrawn back into the stomach where full examination including retroflexed examination of the fundus was performed. Biopsies of the antrum were taken to rule out H. pylori. The GE junction was then carefully examined and this was also biopsied because of the patient's symptoms. The scope was then slowly withdrawn, and attention was turned to colonoscopy. Digital rectal exam was performed showing no rectal masses. The Olympus colonoscope was inserted into the rectum. Retroflexed examination of the rectal canal was performed. The scope was then carefully advanced under direct visualization through the entire length of the colon until the cecum was reached. This was somewhat difficult because of tortuosity of the colon and did require some hand pressure, but eventually the cecum was able to be safely reached. Cecal acquisition was confirmed by noting the normal internal cecal anatomy including the appendiceal orifice and the ileocecal valve and the light was also noted to transilluminate the abdominal wall in the right lower quadrant. The ileocecal valve was cannulated and the terminal ileum examined. It appeared normal. Random biopsies of the terminal ileum were taken to further evaluate for celiac disease. The scope was then slowly withdrawn sequentially re-examining the colonic segments, and throughout the right and left colon, random biopsies were taken to evaluate her symptoms of diarrhea. Once the examination had been completed and with no sign of any complication, the scope was removed and the patient was taken from the operating room in satisfactory condition. ESTIMATED BLOOD LOSS: 3 mL. COMPLICATIONS: None. PROGNOSIS: Good. GERDA Huggins MD /[id number]
== END 2018-02-03 15:56 | disposition home or self-care (01) ==
LOC: LL.SDS 12:38
PROVIDERS: ATTEND Surgery
DX: K63.9 Disease of intestine, unspecified (principal); K29.50 Unspecified chronic gastritis without bleeding; K31.9 Disease of stomach and duodenum, unspecified; K20.9 Esophagitis, unspecified; K56.2 Volvulus; Z88.5 Allergy status to narcotic agent; Z88.0 Allergy status to penicillin; Z88.8 Allergy status to other drugs, medicaments and biological substances; Z91.041 Radiographic dye allergy status
CPT/HCPCS: 00813; 43239; 45380; 88305; J2250; J2704; J3010; J7120

== ENCOUNTER 2022-11-27 09:33 | Inpatient (IN) | payer MEDICARE, OTHER ==
[2022-11-27] MEDS ORDERED: Lidocaine 2% Viscous Solution 15 ML UD MUCMEM PRN (15:09)
[2022-11-27] MEDS: oxyCODONE 5 MG Tab PO SCH ×2 (15:17→23:03)
[2022-11-27] MEDS ORDERED: EPINEPHrine 1 MG/ML SDV IM PRN (16:33)
[2022-11-27] MEDS ORDERED: Lactulose Soln 10 GM/15 ML 30 ML UD Cup PO PRN (16:33)
[2022-11-27] MEDS ORDERED: Non-Formulary Medication 1 Each (Naloxone 4 MG Spray) INH PRN (16:33)
[2022-11-27] MEDS ORDERED: Acetaminophen 500 MG Tab PO PRN (16:33)
[2022-11-27] MEDS ORDERED: Melatonin 3 MG Tab PO PRN (16:33)
[2022-11-27] MEDS ORDERED: diphenhydrAMINE 25 MG Cap PO PRN (17:27)
[2022-11-27] MEDS: tiZANidine 4 MG Tab PO SCH (18:01)
[2022-11-27] MEDS: ClonazePAM 0.5 MG Tab PO SCH (18:02)
[2022-11-27] MEDS: Docusate Sodium 100 MG Cap PO SCH (18:02)
[2022-11-27] MEDS: Sucralfate 1 GM Tab PO SCH (18:02)
[2022-11-27] MEDS: Gabapentin 400 MG Cap PO SCH (19:58)
[2022-11-27] MEDS: atorvaSTATin 20 MG Tab PO SCH (19:59)
[2022-11-27] MEDS: Tamsulosin 0.4 MG Cap.ER PO SCH (19:59)
[2022-11-27] MEDS: Amitriptyline 25 MG Tab PO SCH (20:00)
[2022-11-27] MEDS ORDERED: Sodium Chloride 0.9% 10 ML Syringe FLUSH PRN (23:27)
[2022-11-27] MEDS ORDERED: Albuterol/Ipratropium 3.0-0.5 MG/3 ML Neb Soln NEB PRN (23:29)
[2022-11-28] MEDS ORDERED: Azithromycin 500 MG in Sodium Chloride 0.9% 250 ML IV SCH ×2
[2022-11-28] MEDS ORDERED: cefTRIAXone 1 GM in Sodium Chloride 0.9% 100 ML IV SCH ×2
[2022-11-28 00:11] LABS: CHLORIDE,CL 99 mmol/L (98-107); SODIUM,NA 135 mmol/L (136-145)
[2022-11-28 00:12] LABS: ANION GAP 10.7 meq/L (7-15); ESTIMATED GFR 96 mL/min (>=60)
[2022-11-28] MEDS ORDERED: Acetaminophen 325 MG Tab PO PRN (00:52)
[2022-11-28] MEDS ORDERED: FLUOXETINE 40 MG PO SCH (08:00)
[2022-11-28] MEDS ORDERED: Lidocaine 4% 1 each Patch TOP SCH (08:00)
[2022-11-28] MEDS ORDERED: Polyethylene Glycol 3350 Powder 17 GM Packet PO SCH (08:00)
[2022-11-28] MEDS ORDERED: Furosemide 20 MG Tab PO SCH (08:00)
[2022-11-28] MEDS ORDERED: FLUoxetine 20 MG Cap PO SCH (08:00)
[2022-11-28] MEDS ORDERED: Omeprazole 20 MG Cap.CR PO SCH (08:00)
[2022-11-28] MEDS: Sucralfate 1 GM Tab PO SCH ×2 (09:21→18:33)
[2022-11-28] MEDS: ClonazePAM 0.5 MG Tab PO SCH ×3 (09:22→18:34)
[2022-11-28] MEDS: Gabapentin 400 MG Cap PO SCH ×2 (09:23→18:33)
[2022-11-28] MEDS: tiZANidine 4 MG Tab PO SCH ×3 (09:29→18:35)
[2022-11-28] MEDS: oxyCODONE 5 MG Tab PO SCH ×2 (09:30→16:01)
[2022-11-28] MEDS: Docusate Sodium 100 MG Cap PO SCH ×2 (09:33→18:35)
[2022-11-28] MEDS ORDERED: Gabapentin 300 MG Cap PO SCH (12:00)
[2022-11-28] MEDS: atorvaSTATin 20 MG Tab PO SCH (19:27)
[2022-11-28] MEDS: Tamsulosin 0.4 MG Cap.ER PO SCH (19:27)
[2022-11-28] MEDS: Amitriptyline 25 MG Tab PO SCH (19:27)
[2022-11-28 19:56] VITALS: BP 131/65; PULSE 128
[2022-11-28 20:38] LABS: ANION GAP 9.3 meq/L (7-15)
[2022-11-28 20:57] LABS: CORONAVIRUS COVID-19 NAA NEGATIVE (NEGATIVE); RESPIRATORY SYNCYTIAL VIR NAA NEGATIVE (NEGATIVE)
[2022-11-28] MEDS ORDERED: Sodium Chloride 0.9% 1,000 ML IV SCH (21:30)
[2022-11-29] MEDS ORDERED: Alendronate 70 MG Tab PO SCH (06:30)
== END 2022-11-28 21:42 | DRG 559 ==
LOC: LL.MS 14:48
PROVIDERS: ADMIT Emergency Medicine; ATTEND Nurse Practitioner Family
DX: Z47.89 Encounter for other orthopedic aftercare (principal); J18.9 Pneumonia, unspecified organism; R33.9 Retention of urine, unspecified; I10 Essential (primary) hypertension; G47.00 Insomnia, unspecified; M81.0 Age-related osteoporosis without current pathological fracture; K21.9 Gastro-esophageal reflux disease without esophagitis; E78.5 Hyperlipidemia, unspecified; G89.29 Other chronic pain; F41.8 Other specified anxiety disorders; M54.9 Dorsalgia, unspecified; G30.9 Alzheimer's disease, unspecified; Z96.653 Presence of artificial knee joint, bilateral; F02.80 Dementia in other diseases classified elsewhere, unspecified severity, without behavioral disturbance, psychotic disturbance, mood disturbance, and anxiety; G62.9 Polyneuropathy, unspecified; E55.9 Vitamin D deficiency, unspecified; Z90.49 Acquired absence of other specified parts of digestive tract; Z98.890 Other specified postprocedural states; Z82.49 Family history of ischemic heart disease and other diseases of the circulatory system; Z88.5 Allergy status to narcotic agent; Z88.0 Allergy status to penicillin; Z88.8 Allergy status to other drugs, medicaments and biological substances; Z91.030 Bee allergy status; Z91.041 Radiographic dye allergy status
CPT/HCPCS: 0241U; 36415; 71045; 80048; 80053; 81001; 83605; 85025; 87040; 87086; 87088; 87186; 97110-GP; 97163-GP; 97530-GP; A9270-GY; J0456; J0696; J3490; J7030; J7050

== ENCOUNTER 2023-05-07 10:57 | Emergency (ER) | payer MEDICARE, OTHER ==
[2023-05-07] MEDS ORDERED: Sodium Chloride 0.9% 10 ML Syringe FLUSH PRN (11:29)
[2023-05-07] MEDS ORDERED: Ondansetron 4 MG/2 ML SDV IVPUSH PRN (11:31)
[2023-05-07 12:06] LABS: HEMATOCRIT 30.9 % (34.0-46.0); LYMPHOCYTES PERCENT AUTO 5.1 % (10.0-50.0); MEAN CORPUSCULAR HEMOGLOBIN 30.1 pg (28.2-33.3); MEAN CORPUSCULAR HGB CONC 32.4 g/dL (31.7-36.0); MEAN CORPUSCULAR VOLUME 93.1 fL (84.0-98.0); MONOCYTES ABSOLUTE AUTO 1.02 K/uL (0.00-1.00); MONOCYTES PERCENT AUTO 7.5 % (2.0-14.0); NEUTROPHILS ABSOLUTE AUTO 11.92 K/uL (1.40-7.00); NEUTROPHILS PERCENT AUTO 87.4 % (45.0-80.0); PLATELET COUNT,PLT 280 K/uL (150-350); RED BLOOD CELL COUNT 3.32 M/uL (3.77-5.09); RED CELL DISTRIBUTION WIDTH 16.9 % (11.2-14.1); WHITE BLOOD CELL COUNT,WBC 13.6 K/uL (4.0-10.2)
[2023-05-07] MEDS: HYDROmorphone 0.5 MG/0.5 ML Syringe IVPUSH PRN ×2 (12:18→16:35)
[2023-05-07] MEDS ORDERED: Sodium Chloride 0.9% 1,000 ML IV ONE (12:19)
[2023-05-07] MEDS ORDERED: Vancomycin 1.2 GM in Sodium Chloride 0.9% 250 ML IV ONE (12:19)
[2023-05-07 12:27] LABS: ALBUMIN 2.5 g/dL (3.4-5.0); BILIRUBIN TOTAL 0.6 mg/dL (0.2-1.0); CALCIUM 8.6 mg/dL (8.5-10.1); CARBON DIOXIDE,CO2 23.8 mmol/L (21.0-32.0); CREATININE 0.83 mg/dL (0.51-1.17); EST CRCL DRUG DOSING (CG) 59.04 mL/min; POTASSIUM,K 3.3 mmol/L (3.5-5.1)
[2023-05-07 12:35] LABS: ANION GAP 12.5 meq/L (7-15)
[2023-05-07 14:33] LABS: APPEARANCE,URINE SLIGHTLY CLOUDY; BILIRUBIN,URINE SMALL (NEGATIVE); COLOR,URINE DARK YELLOW; GLUCOSE,URINE NEGATIVE (NEGATIVE); KETONES,URINE NEGATIVE (NEGATIVE); LEUKOCYTE ESTERASE,URINE NEGATIVE (NEGATIVE); NITRITE,URINE NEGATIVE (NEGATIVE); OCCULT BLOOD,URINE LARGE (NEGATIVE); PROTEIN,URINE 100 mg/dL (NEGATIVE)
[2023-05-07 14:54] LABS: AMORPHOUS SEDIMENT,URINE FEW /HPF (0/HPF); BACTERIA,URINE FEW /HPF (NONE TO FEW); EPITHELIAL CELLS,URINE RARE /LPF; MUCUS,URINE MODERATE /LPF (NEGATIVE); RBC,URINE >100 /HPF; WBC,URINE 0-5 /HPF
[2023-05-07] MEDS ORDERED: LORazepam 0.5 MG Tab PO ONE (16:22)
[2023-05-07 17:27] VITALS: BP 142/80; PULSE 130
== END 2023-05-07 18:05 ==
LOC: LL.ED 10:57
DX: A41.9 Sepsis, unspecified organism (principal); L02.31 Cutaneous abscess of buttock; I10 Essential (primary) hypertension; Z88.0 Allergy status to penicillin; Z88.5 Allergy status to narcotic agent; Z91.030 Bee allergy status; Z88.8 Allergy status to other drugs, medicaments and biological substances
CPT/HCPCS: 36415; 51702; 71045; 72072; 72100; 80053; 81001; 83605; 85025; 87040; 87077; 87186; 96365; 96366; 96375; 96376; 99284; 99284-25; A9270-GY; J1170; J2405; J3370; J3490; J7030; J7050

== ENCOUNTER 2023-10-28 08:42 | Emergency (ER) | payer MEDICARE, OTHER ==
[2023-10-28] MEDS: Ondansetron 4 MG/2 ML SDV IVPUSH ONE (09:55)
[2023-10-28] MEDS: methylPREDNISolone Sodium Succinate 125 MG/2 ML SDV IVPUSH ONE (09:57)
[2023-10-28] MEDS: Sodium Chloride 0.9% 10 ML Syringe FLUSH PRN (09:58)
[2023-10-28] MEDS: Ketorolac 15 MG/ML SDV IVPUSH STA (09:59)
[2023-10-28 10:08] VITALS: BP 142/72; PULSE 99
== END 2023-10-28 11:12 | disposition home or self-care (01) ==
LOC: LL.ED 08:42
DX: G89.29 Other chronic pain (principal); M54.42 Lumbago with sciatica, left side; L89.302 Pressure ulcer of unspecified buttock, stage 2; I10 Essential (primary) hypertension; Z88.0 Allergy status to penicillin; Z88.5 Allergy status to narcotic agent; Z91.030 Bee allergy status; Z91.041 Radiographic dye allergy status; Z88.8 Allergy status to other drugs, medicaments and biological substances; Z79.899 Other long term (current) drug therapy; Z90.49 Acquired absence of other specified parts of digestive tract
CPT/HCPCS: 96374; 96375; 99283-25; J1885; J2405; J2930; J3360; J3490